=== PATIENT | female | born 1955 | race African-American/Black ===

== ENCOUNTER 2019-05-29 16:08 | Inpatient (IN) | payer OTHER ==
[~2019-05-29] VITALS: Ht 157.5 cm; Wt 125.6 kg
[2019-05-29 16:10] VITALS: BP_SYST 112
--- NOTE | 2019-05-29 16:10 | NUR ---
Patient to ER bed 2 to gown for evaluation. Side rails up. Report given to Dawna ELLIS.
--- NOTE | 2019-05-29 16:12 | NUR ---
Patient arrived in the ED c/o shortness of breath, chest pain and coughing that started a month ago. Denied any loss of consciousness. Denied any fevers, chills, nausea or vomiting. Patient is alert and oriented x4, speaking in full sentences, and ambulating with assistance. VSS, pain level 4/10. Informed of the approximate wait time. Instructed to notify ED staff for any changes in condition or worsening of symptoms while waiting to be seen by the provider. Patient verbalized understanding.
--- NOTE | 2019-05-29 16:13 | NUR ---
ER Dr. Tony at bedside examining patient.
[2019-05-29] MEDS ORDERED: methylPREDNISolone SOD SUCC/PF 62.5 MG/ML VIAL IVP ONE (16:15)
[2019-05-29] MEDS ORDERED: IPRATROPIUM BROM 0.5 MG/2.5 ML VIAL.NEB (ATROVENT) INH ONE (16:15)
[2019-05-29] MEDS ORDERED: ALBUTEROL SULFATE 0.083% 2.5 MG/3 ML VIAL.NEB INH ONE (16:15)
[2019-05-29] MEDS ORDERED: ASPIRIN 81 MG TAB.CHEW PO ONE (16:15)
--- NOTE | 2019-05-29 16:29 | NUR ---
X-ray tech at bedside as ordered by Dr. Tony. Patient tolerated the procedure well.
--- NOTE | 2019-05-29 16:34 | NUR ---
ECG done at bedside.
--- NOTE | 2019-05-29 16:35 | NUR ---
RT at bedside administering inhalation treatment as ordered by Dr. Tony. Patient tolerated the medications well.
[2019-05-29 16:41] LABS: BASOPHILS % (AUTO) 0.6 % (0.0-2.0); EOSINOPHILS # (AUTO) 0.1 K/uL (0.0-0.4); HEMATOCRIT 30.2 % (36-48); HEMOGLOBIN 9.6 g/dL (12.0-16.0); LYMPHOCYTES # (AUTO) 2.6 K/uL (1.0-5.5); LYMPHOCYTES % (AUTO) 39.6 % (20.5-51.5); MEAN CORPUSCULAR HEMOGLOBIN 28 pg (27-31); MEAN CORPUSCULAR HGB CONC 32 % (32-36); MEAN CORPUSCULAR VOLUME 88 fL (79.0-98.0); MONOCYTES # (AUTO) 0.6 K/uL (0.0-1.0); MONOCYTES % (AUTO) 9.6 % (1.7-9.3); NEUTROPHILS # (AUTO) 3.2 K/uL (1.8-7.7); NEUTROPHILS % (AUTO) 49.2 % (40.0-70.0); PLATELET COUNT (AUTO) 271 K/uL (130-430); RED BLOOD CELL COUNT(AUTO) 3.44 MIL/uL (4.2-6.2); RED CELL DISTRIBUTION WIDTH 13.7 % (9.0-15.0); WHITE BLOOD COUNT (AUTO) 6.4 K/uL (4.8-10.8)
[2019-05-29 16:54] LABS: CALCIUM 8.2 mg/dL (8.4-11.0); CREATININE 1.07 mg/dL (0.55-1.30); POTASSIUM 3.6 mmol/L (3.5-5.1)
[2019-05-29 16:58] LABS: ALBUMIN 3.5 g/dL (3.4-4.8); TOTAL BILIRUBIN 0.3 mg/dL (0.0-1.0)
[2019-05-29] MEDS ORDERED: DIPHENHYDRAMINE INJ 50 MG/ML VIAL IVP ONE (17:00)
[2019-05-29] MEDS ORDERED: AZAT50TA18 PO (17:10)
[2019-05-29] MEDS ORDERED: ALPR0.25 PO (17:15)
[2019-05-29] MEDS ORDERED: GABA-531 PO (17:15)
[2019-05-29] MEDS ORDERED: DULO20CA PO (17:15)
[2019-05-29] MEDS ORDERED: LISI-600 PO (17:15)
[2019-05-29] MEDS ORDERED: DIPH50CA38 PO (17:16)
[2019-05-29] MEDS ORDERED: LINA145C PO (17:18)
[2019-05-29] MEDS ORDERED: ISOS30TA6 PO ×2 (17:18→17:38)
[2019-05-29] MEDS ORDERED: TYC3 PO (17:25)
[2019-05-29] MEDS ORDERED: NITR1PAT76 TD (17:25)
[2019-05-29] MEDS ORDERED: ROFL500T PO (17:25)
[2019-05-29] MEDS ORDERED: POTA20TA83 PO (17:25)
[2019-05-29] MEDS ORDERED: OXYC36CA PO (17:25)
[2019-05-29] MEDS ORDERED: MORP15TA PO (17:25)
[2019-05-29] MEDS ORDERED: MONT10TA25 PO (17:25)
[2019-05-29] MEDS ORDERED: AZIT250T PO (17:25)
[2019-05-29] MEDS ORDERED: CYCL-10 PO (17:25)
[2019-05-29] MEDS ORDERED: FLUT1BLS3 INH (17:25)
[2019-05-29] MEDS ORDERED: ALBU2.5V7 INH (17:25)
[2019-05-29] MEDS ORDERED: COLE3.753 PO (17:25)
[2019-05-29] MEDS ORDERED: OXYC10TA48 PO (17:25)
[2019-05-29] MEDS ORDERED: FLUO120C4 TP (17:35)
[2019-05-29] MEDS ORDERED: FER300L PO (17:35)
[2019-05-29] MEDS ORDERED: FER300L (17:35)
[2019-05-29] MEDS ORDERED: DICL100G19 TP (17:35)
[2019-05-29] MEDS ORDERED: FLO44 INH (17:35)
[2019-05-29] MEDS ORDERED: FLUC200T PO (17:35)
[2019-05-29] MEDS ORDERED: POTA8TAB4 PO (17:38)
[2019-05-29] MEDS ORDERED: FURO-149 PO (17:38)
[2019-05-29] MEDS ORDERED: ATRMDI INH (17:38)
[2019-05-29] MEDS ORDERED: ASM110 INH (17:38)
[2019-05-29] MEDS ORDERED: KETO60CR2 TP (17:38)
[2019-05-29] MEDS ORDERED: ROPI3TAB PO (17:42)
[2019-05-29] MEDS ORDERED: NITSL SL (17:42)
[2019-05-29] MEDS ORDERED: INSU100I4 SUBQ (17:42)
[2019-05-29] MEDS ORDERED: RESEYE OP (17:42)
[2019-05-29] MEDS ORDERED: TRIA15CR3 TP (17:43)
[2019-05-29] MEDS ORDERED: ENOXAPARIN SODIUM 100 MG/ML SYRINGE SUBCUT ONE (18:15)
[2019-05-29 18:29] LABS: INR 0.9 (0.8-1.2); PROTHROMBIN TIME 9.4 SECS (9.5-12.5)
--- NOTE | 2019-05-29 18:50 | NUR ---
Administered Lovenox subcutaneous as ordered by Dr. Tony. Patient tolerated the medication well.
--- NOTE | 2019-05-29 18:56 | NUR ---
Administered Morphine sulfate as ordered by Dr. Tony. Patient tolerated the medication well.
[2019-05-29] MEDS ORDERED: MORPHINE 2 MG/ML INJ. SYRINGE IVP ONE (19:00)
--- NOTE | 2019-05-29 19:19 | NUR ---
Report given and care transferred to RHONDA Martinez.
--- NOTE | 2019-05-29 19:25 | NUR ---
Assumed care of patient. Patient AOx4, GCS 15, states she presented with SOB, difficulty breathing, and chest pain x2 weeks. Patient states she has had a persistent productive cough. Patient states she has noted a blood-tinged color to the phlegm. Patient reports hx of COPD and uses 3L 02 via NC continuously. Patient speaking in full sentences. No acute respiratory distress noted at this time. 02 sat at 100%.
--- NOTE | 2019-05-29 19:26 | NUR ---
End of life care decisions discussed with patient by Dr. Tony. Opportunity for questions and concerns addressed. Patient's code status is DNR, paperwork completed and placed in chart.
[2019-05-29] MEDS ORDERED: IPRATROPIUM BROM 0.5 MG/2.5 ML VIAL.NEB (ATROVENT) INH PRN (21:45)
[2019-05-29] MEDS ORDERED: ALBUTEROL SULFATE 0.083% 2.5 MG/3 ML VIAL.NEB INH PRN (21:45)
--- NOTE | 2019-05-29 21:55 | NUR ---
Patient will be admitted to care of DR. REYES. Admitted to TELEMETRY unit. Will go to room 117A. Complete and up to date summary report printed. SBAR report to be given at bedside with opportunity for questions.
--- NOTE | 2019-05-29 22:19 | NUR ---
ADMISSION NOTE Received patient from ER via hunter, received report from WELFARE DIRECTOR. Patient admitted with diagnosis of SOB. Patient oriented to hospital routine, call light, toileting and safety-patient verbalized understanding.
[2019-05-29 22:21] VITALS: BP_SYST 139
--- NOTE | 2019-05-29 23:10 | NUR ---
Ky De Los Santos s/w Maria De Jesus
--- NOTE | 2019-05-29 23:40 | NUR ---
Second Call for Dr. De Los Santos s/w Maria De Jesus
[2019-05-30] MEDS: IPRATROPIUM BROM 0.5 MG/2.5 ML VIAL.NEB (ATROVENT) INH SCH ×4 (00:27→19:50)
[2019-05-30] MEDS: ALBUTEROL SULFATE 0.083% 2.5 MG/3 ML VIAL.NEB INH SCH ×4 (00:28→19:50)
[2019-05-30 00:36] VITALS: BP_SYST 139
--- NOTE | 2019-05-30 00:38 | NUR ---
SPOKE TO DR. REYES REGARDING PT'S REPORT OF SEVERE PAIN AND NAUSEA. NEW ORDERS RECEIVED. ALSO ASKED MD IF HE WOULD LIKE TO HAVE THE PATIENT ON A DIET, MD STATED THE PATIENT WILL BE NPO AT THIS TIME. WILL CARRY OUT.
[2019-05-30 00:45] VITALS: BP_SYST 140
[2019-05-30] MEDS: HYDROmorphone 1 MG INJ. 1 MG/ML AMPUL IVP PRN ×6 (00:50→23:14)
[2019-05-30] MEDS: ONDANSETRON HCL 4 MG/2 ML VIAL IVP PRN ×4 (00:50→21:48)
--- NOTE | 2019-05-30 00:50 | NUR ---
PAIN/ZOFRAN PT GIVEN DILAUDID 1 MG IVP ORDERED PRN FOR SEVERE PAIN. PT ALSO GIVEN ZOFRAN 4 MG IVP FOR NAUSEA. MEDICATION ACTIONS AND POTENTIAL SIDE EFFECTS, PT VERBALIZED UNDERSTANDING. SAFETY MAINTAINED. WILL MONITOR.
--- NOTE | 2019-05-30 02:15 | NUR ---
RN ROUNDS: PT RESTING IN BED, BREATHING IS UNLABORED TO O2 VIA NC AT 3L, PRODUCTIVE COUGH NOTED INTERMITTENTLY. PT REPORTS TOLERABLE LEVEL OF PAIN AT THIS TIME. PT DENIES FURTHER NEEDS AT THIS TIME. NO S/S OF DISTRESS. SAFETY MAINTAINED, CALL LIGHT IS WITH PT. WILL MONITOR.
[2019-05-30] MEDS: DIPHENHYDRAMINE INJ 50 MG/ML VIAL IVP PRN ×3 (04:54→21:59)
[2019-05-30] MEDS: methylPREDNISolone SOD SUCC/PF 62.5 MG/ML VIAL IVP SCH ×3 (05:01→21:59)
--- NOTE | 2019-05-30 05:01 | NUR ---
MEDICATIONS PT GIVEN DILAUDID 1 MG IVP ORDERED PRN FOR SEVERE PAIN. PT ALSO GIVEN ZOFRAN 4 MG IVP FOR NAUSEA. PT GIVEN BENADRYL PER REQUEST. SCHEDULED SOLU-MEDROL ADMINISTERED ORDERED. MEDICATION ACTIONS AND POTENTIAL SIDE EFFECTS, PT VERBALIZED UNDERSTANDING. SAFETY MAINTAINED. WILL MONITOR.
--- NOTE | 2019-05-30 06:42 | NUR ---
CLOSING NOTE PT RESTING IN BED, NO S/S OF ACUTE DISTRESS, PT HAS BEEN MEDICATED FOR PAIN THROUGHOUT SHIFT, BREATHING IS UNLABORED TO O2 VIA NC AT 3L. PT HAS RECEIVED BREATHING TREATMENTS THROUGHOUT SHIFT. SAFETY PRECAUTIONS MAINTAINED. WILL CONTINUE TO MONITOR UNTIL PT CARE IS ENDORSED TO DAY SHIFT RN.
--- NOTE | 2019-05-30 07:15 | NUR ---
Opening Note Received bedside report from endorsing RN for continuation of care. Received patient awake and resting in bed, denies any pain or SOB at this time. No signs or symptoms of acute distress noted. Bed locked in lowest position and call light within reach. Safety precautions in place.
[2019-05-30 08:00] VITALS: BP_SYST 114
[2019-05-30] MEDS: DULoxetine HCL 20 MG CAPSULE.DR PO SCH (09:00)
[2019-05-30] MEDS ORDERED: ISOSORBIDE MONONITRATE 30 MG TAB.ER.24H PO SCH (09:00)
[2019-05-30] MEDS: ISOSORBIDE MONONITRATE 30 MG TAB.ER.24H PO SCH (09:12)
[2019-05-30] MEDS: LISINOPRIL 20 MG TABLET PO SCH (09:13)
[2019-05-30] MEDS: FUROSEMIDE 40 MG TABLET PO SCH (09:13)
[2019-05-30] MEDS ORDERED: BUDESONIDE 0.5 MG/2 ML AMPUL.NEB INH SCH (10:00)
--- NOTE | 2019-05-30 10:15 | NUR ---
Dr. De Los Santos at bedside examining patient. New orders received.
--- NOTE | 2019-05-30 10:16 | NUR ---
CONSULT Dr. Brand in unit. Made aware of new consult.
[2019-05-30] MEDS ORDERED: COMMUNICATION ORDER XX ONE (11:30)
--- NOTE | 2019-05-30 11:35 | NUR ---
Dr. Brand at bedside examining patient. New orders received.
[2019-05-30 12:00] VITALS: BP_SYST 110
--- NOTE | 2019-05-30 12:39 | NUR ---
PAGED PAGED TERE LOMAX AT [phone] SPOKE WITH CURT.
[2019-05-30] MEDS ORDERED: HYDROcodone/ACETAMIN 5-325 MG TAB (NORCO/ VICODIN) PO PRN (13:00)
[2019-05-30] MEDS ORDERED: ALBUTEROL SULFATE 0.083% 2.5 MG/3 ML VIAL.NEB INH SCH (13:00)
[2019-05-30] MEDS: MEROPENEM 1 GM IVPB PREMIX 50 ML IV SCH ×2 (13:09→21:48)
--- NOTE | 2019-05-30 13:20 | NUR ---
Patient to radiology via wheelchair, accompanied by senior technical manager.
--- NOTE | 2019-05-30 13:50 | NUR ---
Patient back from radiology via wheelchair, accompanied by lead quality control technician. Patient placed on continuous campus monitor.
--- NOTE | 2019-05-30 14:15 | NUR ---
Patient awake and resting in bed, watching TV, denies any pain or SOB at this time. No signs or symptoms of acute distress noted.
[2019-05-30 16:00] VITALS: BP_SYST 112
--- NOTE | 2019-05-30 16:30 | NUR ---
Patient resting in bed, no signs or symptoms of acute distress noted. Fall and safety precautions in place.
[2019-05-30] MEDS: MONTELUKAST 10 MG TABLET PO SCH (17:40)
--- NOTE | 2019-05-30 18:32 | NUR ---
Patient sitting up in bed eating dinner, denies any pain or SOB. No signs or symptoms of acute distress noted. Bed locked in lowest position and call light within reach. Safety precautions in place.
--- NOTE | 2019-05-30 19:10 | NUR ---
Endorsement Endorsed bedside report to oncoming RN using SBAR approach for continuation of care.
--- NOTE | 2019-05-30 19:10 | NUR ---
Pt was received sitting on the edge of her bed fully awake and alert. Pt has multiple complaints and requested to leave AMA. Pt stated her IV site in RFA is infiltrated and nothing is being done about it. Pt was informed a new IV line will be restarted after RN receives report from other day shift nurses since this is change of shift. Pt was given AMA form per her request. Oxygen is on at 3L/min via NC. Fall and safety precautions are in place. Addendum: 05/31/19 at 0151 by Kenia Coleman RN Late Entry due to patient care
[2019-05-30 20:00] VITALS: BP_SYST 137
--- NOTE | 2019-05-30 20:15 | NUR ---
Pt requested IV restart in her right forearm only. RN utilized Vein Finder and was unable to find a vein for IV restart in her RFA, but found some in pt's right hand. Pt refused IV restart in her right hand. She stated IV lines in her right hand do not last long before they become infiltrated. Pt also requested not to restart IV line in her left arm due to history of DVT. Pt was informed RN will ask another RN to attempt restarting IV line in her RFA.
--- NOTE | 2019-05-30 21:30 | NUR ---
New IV line was restarted in pt's right wrist with Angiocath 24G by charge nurse Hung. Saline lock in RFA was removed with the Angiocath intact and pressure dressing was applied to the site.
--- NOTE | 2019-05-30 21:48 | NUR ---
Zofran 4mg was given IV for c/o nausea. Fall and safety precautions are in place.
--- NOTE | 2019-05-30 21:54 | NUR ---
Pt requested to have her blood sugar checked. Pt stated she is on steroids and her blood sugar must be very high. Accucheck done and it was 131.
--- NOTE | 2019-05-30 21:59 | NUR ---
Benadryl 50mg was given IV per pt's request for itching prior to giving her scheduled IV Solu Medrol. Fall and safety precautions are in place.
--- NOTE | 2019-05-30 23:14 | NUR ---
Dilaudid 1mg was given IV for c/o generalized body aches. Pt is requesting all her home medications resumed by MD loss prevention supervisor even though some were held by attending MD. Pt was informed Dr. De Los Santos will be in tomorrow morning and he can review her home medications. Fall and safety precautions are in place.
--- NOTE | 2019-05-31 00:15 | NUR ---
Pt was given 1/2 turkey sandwich, 2 jellos and 2 juices per her request. Pt consumed 100%.
[2019-05-31] MEDS: ALBUTEROL SULFATE 0.083% 2.5 MG/3 ML VIAL.NEB INH SCH ×4 (01:25→19:59)
[2019-05-31] MEDS: IPRATROPIUM BROM 0.5 MG/2.5 ML VIAL.NEB (ATROVENT) INH SCH ×4 (01:25→19:59)
--- NOTE | 2019-05-31 01:30 | NUR ---
Pt was given 2 1/2 turkey sandwiches, 4 packets of Chago Crackers (total 8 crackers) and 1 cup vanilla pudding per her request. Pt consumed 100%.
[2019-05-31 02:18] VITALS: BP_SYST 144
[2019-05-31] MEDS: HYDROmorphone 1 MG INJ. 1 MG/ML AMPUL IVP PRN ×4 (03:20→22:05)
--- NOTE | 2019-05-31 03:20 | NUR ---
Dilaudid 1mg was given IV per pt's request for c/o generalized body aches. Fall and safety precautions are in place.
[2019-05-31] MEDS: MEROPENEM 1 GM IVPB PREMIX 50 ML IV SCH ×3 (05:13→21:57)
[2019-05-31] MEDS: DIPHENHYDRAMINE INJ 50 MG/ML VIAL IVP PRN ×3 (05:25→22:03)
--- NOTE | 2019-05-31 05:25 | NUR ---
Benadryl 50mg was given IV per pt's request for itching prior to giving her scheduled IV Solu Medrol. Fall and safety precautions are in place.
[2019-05-31] MEDS: methylPREDNISolone SOD SUCC/PF 62.5 MG/ML VIAL IVP SCH ×3 (05:28→21:56)
--- NOTE | 2019-05-31 06:30 | NUR ---
Pt is awake and resting quietly in bed. All pt's needs were attended to. Saline lock in right wrist is without an signs of infiltration. Fall and safety precautions are in place. Will endorse to day shift nurse.
--- NOTE | 2019-05-31 07:30 | NUR ---
INITIAL NOTE PT COUGHING, ASSISTED PT WITH SUCTION. PT ON 3L NASAL CANNULA SATURATING AT 99%. PT COMPLAINING OF GENERALIZED PAIN. EDUCATED PT ON USES AND SIDE EFFECTS OF DILAUDID. PT VERBALIZED UNDERSTANDING. PRN DILAUDID ADMINISTERED. CALL LIGHT WITHIN REACH, BED IN LOW AND LOCKED POSITION. EDUCATED PT ON SAFETY AND USE OF BED ALARM, PT VERBALIZED UNDERSTANDING, PT REFUSING BED ALARM AT THIS TIME.
[2019-05-31] MEDS: ONDANSETRON HCL 4 MG/2 ML VIAL IVP PRN ×2 (07:32→11:41)
[2019-05-31 08:00] VITALS: BP_SYST 134
[2019-05-31] MEDS: DULoxetine HCL 20 MG CAPSULE.DR PO SCH ×2 (09:00→09:04)
[2019-05-31] MEDS: ISOSORBIDE MONONITRATE 30 MG TAB.ER.24H PO SCH (09:04)
[2019-05-31] MEDS: LISINOPRIL 20 MG TABLET PO SCH (09:04)
[2019-05-31] MEDS: FUROSEMIDE 40 MG TABLET PO SCH (09:05)
--- NOTE | 2019-05-31 09:30 | NUR ---
DR. REYES/RN ROUNDS MD AT BEDSIDE EXAMINING PT. INFORMED MD THAT PT IS REQUESTING FOR SOME OF HER HOME PAIN MEDS TO BE CONTINUED, MEDICATIONS ARE IN THE MED REC. MD TO LOOK AT MED REC. PT REMAINS ON 3L NC, NO COUGHING AT THIS TIME.
--- NOTE | 2019-05-31 10:01 | NUR ---
Nutrition Update Carmine Scale 18 noted. Pt admitted for SOB. Diet: 2 gm Na BMI: 50.3 kg/m2 RD to follow per nutrition care standards.
--- NOTE | 2019-05-31 11:30 | NUR ---
RN ROUNDS PT ASSISTED TO BSC. PT VOIDED, CLEAR AND YELLOW. NURSING STUDENTS ASSISTED PT WITH BED BATH AND CHANGED LINENS. PT TOLERATED WELL.
[2019-05-31 12:00] VITALS: BP_SYST 144
--- NOTE | 2019-05-31 13:30 | NUR ---
RN ROUNDS PT AWAKE, SPEAKING ON PHONE AT BEDSIDE. NO CHANGE IN ASSESSMENT. WILL CONTINUE TO MONITOR.
--- NOTE | 2019-05-31 15:21 | NUR ---
RN ROUNDS PT AWAKE, RESTING IN BED. PT REMAINS ON 3L NC TOLERATING WELL. WILL CONTINUE TO MONITOR.
--- NOTE | 2019-05-31 15:38 | NUR ---
Dietitian Recommendations * Recommend continuing 2 gm Na diet * Encourage increase PO intakes * RD to provide heart-healthy MNT LP, RD Please refer to Nutrition Assessment for details. Addendum: 05/31/19 at [address] Amended: Links added.
[2019-05-31 16:00] VITALS: BP_SYST 142
--- NOTE | 2019-05-31 16:00 | NUR ---
IV INFILTRATED/REFUSED IV ACCESS PT IV INFILTRATED. INFORMED PT THAT WE WILL NEED A NEW IV ACCESS. EDUCATED PT THAT IN ORDER TO START AN IV WE MUST FLUSH IV LINE. PT VERBALIZED UNDERSTANDING. CHARGE NURSEEARNEST AT BEDSIDE TO START NEW IV. CHARGE NURSE RE-EDUCATED THAT ALL NARCOTICS ARE TO BE DILUTED BEFORE BEING ADMINISTERED. PT WAS VERY UNCOOPERATIVE AND WOULD NOT ALLOW A NEW IV IF HER PRN DILAUDID WAS DILUTED. CHARGE NURSE AND I REITERATED THAT IT IS STATE POLICY. PT REFUSING IV ACCESS AT THIS TIME.
--- NOTE | 2019-05-31 16:30 | NUR ---
DR. GRAHAM/RN ROUNDS MD AT BEDSIDE EXAMINING PT. INFORMED MD THAT PT IV INFILTRATED BUT PT IS REFUSING ACCESS TO PAIN MEDS BEING DILUTED EVEN WHEN EDUCATED THAT IT IS STATE POLICY. INFORMED MD THAT PT DOES HAVE PO PAIN MEDICATIONS IN HER MED REC. MD TO CONTINUE MEDICATIONS.
[2019-05-31] MEDS ORDERED: GABAPENTIN 300 MG CAPSULE PO ONE (16:45)
[2019-05-31] MEDS ORDERED: MORPHINE SULFATE 30 MG Immediate Release TABLET PO ONE (16:45)
--- NOTE | 2019-05-31 16:55 | NUR ---
DR. REYES SPOKE WITH MD VIA PHONE, INFORMED MD THAT PT IS REFUSING IV ACCESS SHE STATES THAT "DILUTING MY DILAUDID IS CAUSING ME PAIN TO MY IV SITE, MY HEAD, AND IT HURTS" INFORMED MD THAT PT WAS EDUCATED THAT IT IS [place] POLICY TO DILUTE ALL NARCOTICS. MD AWARE THAT PT HAS NO IV ACCESS AND DR GRAHAM CONTINUED PO PAIN MEDICATIONS FROM MED REC. MD AGREEABLE AND WILL CONTINUE WITH CURRENT POC.
--- NOTE | 2019-05-31 17:15 | NUR ---
RN ROUNDS INFORMED PT THAT DR. GRAHAM WAS ABLE TO CONTINUE HER PO PAIN MEDICATIONS. PT WAS STILL UNHAPPY. ASKED PT IF SHE WOULD LIKE TO TAKE THE MEDICATION. PT AGREED TO TAKE PO PAIN MEDICATION. PT INQUIRED ABOUT IV ANTIBIOTICS. INFORMED PT THAT WE WOULD NEED IV ACCESS. PT SAID SHE WOULD AGREE TO IV ACCESS IF DILAUDID WOULD BE DILUTED. RE-EDUCATED WITH THAT ALL RN'S ARE REQUIRED BY STATE LAW TO DILUTE ALL NARCOTICS AND WILL DO SO. PT BECAME UPSET. ASKED PT IF SHE WOULD ALLOW US TO ATTEMPT IV ACCESS. PT REFUSED.
[2019-05-31] MEDS: MONTELUKAST 10 MG TABLET PO SCH (17:20)
--- NOTE | 2019-05-31 18:48 | NUR ---
CLOSING NOTE PT AWAKE, ON 3L NC, TOLERATING WELL. PT SPEAKING WITH NEIGHBOR. NO IV ACCESS, PT REFUSED, MD IS AWARE. EDUCATED PT ON SAFETY AND USE OF BED ALARM, PT VERBALIZED UNDERSTANDING, PT REFUSING BED ALARM AT THIS TIME. CALL LIGHT WITHIN REACH, BED IN LOW AND LOCKED POSITION. ALL NEEDS MET THROUGHOUT SHIFT. WILL CONTINUE TO MONITOR UNTIL PT CARE IS ENDORSED TO FUR POINTER RN.
--- NOTE | 2019-05-31 19:40 | NUR ---
Opening notes Pt AAOx4, VSS, afebrile. No s/s distress or sob noted. Pt talking on the phone. Call light within reach. Safety maintained. Bed low, locked, siderails up x2, pt refused bed alarm, education provided. To monitor.
[2019-05-31 20:30] VITALS: BP_SYST 139
[2019-05-31] MEDS: CYCLOBENZAPRINE HCL 10 MG TABLET (FLEXERIL) PO SCH (21:18)
--- NOTE | 2019-05-31 22:00 | NUR ---
IV restart L. wrist IV not patent. DC'd IV catheter tip intact, no bleeding noted. IV restarted L. FA 22G via aseptic technique, good blood return and flushes well with NS. Pt tolerated well. To monitor.
--- NOTE | 2019-05-31 22:05 | NUR ---
Pain Pt AAOx4, c/o severe, chronic generalized pain. Medicated with Dilaudid 1mg slow IVP as needed R. FA 22G clear and patent. Encouraged pt to call for assistance. Pt verbalized understanding. Call light within reach. To monitor.
[2019-06-01] VITALS (7 sets, daily range): BP systolic 125–160
[2019-06-01] MEDS: ALBUTEROL SULFATE 0.083% 2.5 MG/3 ML VIAL.NEB INH SCH ×4 (00:59→20:01)
[2019-06-01] MEDS: IPRATROPIUM BROM 0.5 MG/2.5 ML VIAL.NEB (ATROVENT) INH SCH ×4 (00:59→20:01)
--- NOTE | 2019-06-01 01:43 | NUR ---
Pt c/o numbness/pain right hand Pt c/o numbness/pain/swelling right hand. R. hand slightly swollen than L hand and tender to touch. Radial pulse palpable and pt able to move fingers/hand. Pt requesting if MRI of hand can be done. Will continue to monitor.
[2019-06-01] MEDS: HYDROmorphone 1 MG INJ. 1 MG/ML AMPUL IVP PRN ×5 (02:55→23:35)
--- NOTE | 2019-06-01 03:05 | NUR ---
Pain Pt c/o severe generalized pain. Dilaudid 1mg slow IVP administered R. FA 22G clear and patent. Call light within reach. Bed low, locked, siderails upx2. Pt refused bed alarm. To monitor.
[2019-06-01] MEDS: MEROPENEM 1 GM IVPB PREMIX 50 ML IV SCH ×3 (06:00→20:00)
[2019-06-01] MEDS: methylPREDNISolone SOD SUCC/PF 62.5 MG/ML VIAL IVP SCH ×3 (06:00→22:26)
[2019-06-01] MEDS: DIPHENHYDRAMINE INJ 50 MG/ML VIAL IVP PRN ×3 (06:02→20:27)
--- NOTE | 2019-06-01 06:55 | NUR ---
Closing notes Pt awake, alert, no s/s distress or sob noted. Pt c/o generalized pain, Dilaudid given 1mg slow IVP R. FA 22G clear and patent. Pt c/o numbness, tenderness, swelling on right hand, pt able to move fingers. Endorsed to AM nurse. Call light within easy reach. Pt refused bed alarm on.
--- NOTE | 2019-06-01 07:15 | NUR ---
OPENING NOTES PT AWAKE, ALERT, AND ORIENTED SITTING UP AT BEDSIDE. NO ACUTE DISTRESS NOTED. NONLABORED BREATHING NOTED, RECEIVING OXYGEN AT 3LPM VIA NASAL CANNULA, TOLERATING WELL. IV LINE INTACT AND PATENT, NO SIGNS OF INFILTRATION NOTED. PT DENIES PAIN AT THIS TIME. BED LOCKED AND IN LOWEST POSITION. ALL NEEDS MET. CALL LIGHT IN REACH. FALL AND ASPIRATION PRECAUTIONS IN PLACE. CONTINUE TO MONITOR.
[2019-06-01] MEDS: LISINOPRIL 20 MG TABLET PO SCH (08:36)
[2019-06-01] MEDS: GABAPENTIN 300 MG CAPSULE PO SCH (08:36)
[2019-06-01] MEDS: FUROSEMIDE 40 MG TABLET PO SCH (08:37)
[2019-06-01] MEDS: ISOSORBIDE MONONITRATE 30 MG TAB.ER.24H PO SCH (08:37)
--- NOTE | 2019-06-01 08:37 | NUR ---
ROUTINE MEDS ROUTINE MEDS ADMINISTERED ORDERED PER MD, EDUCATION GIVEN, TOLERATED WELL. NO ACUTE DISTRESS NOTED. ALL NEEDS MET. CALL LIGHT IN REACH. CONTINUE TO MONITOR.
[2019-06-01] MEDS: DULoxetine HCL 20 MG CAPSULE.DR PO SCH ×2 (08:38→08:40)
--- NOTE | 2019-06-01 08:48 | NUR ---
SEEN BY DR. REYES AT BEDSIDE.
[2019-06-01] MEDS ORDERED: MORPHINE SULFATE 30 MG Immediate Release TABLET PO SCH (09:00)
--- NOTE | 2019-06-01 10:00 | NUR ---
ROUNDS PT AWAKE, ALERT, AND ORIENTED WATCHING TELEVISION. NO ACUTE DISTRESS NOTED. ALL NEEDS MET. CALL LIGHT IN REACH. CONTINUE TO MONITOR.
--- NOTE | 2019-06-01 11:31 | NUR ---
ROUTINE MEDS ROUTINE MEDS ADMINISTERED ORDERED PER MD, EDUCATION GIVEN, TOLERATED WELL. NO ACUTE DISTRESS NOTED. ALL NEEDS MET. CALL LIGHT IN REACH. CONTINUE TO MONITOR.
--- NOTE | 2019-06-01 12:31 | NUR ---
Physical Therapy order has been received. The chart has been reviewed. Received clearance from the RN to evaluate the patient. Patient is unsure that she wants to attempt the evaluation at this time because of her experiencing painful wrists, R > L, and generalized pain due to her medical history. She is frustrated. RN will speak to the patient regarding her care/medical status. Plan: Will attempt Physical Therapy evaluation later.
--- NOTE | 2019-06-01 12:45 | NUR ---
SPOKE TO PT REGARDING IV. IV LINE INTACT AND PATENT, NO SIGNS OF INFILTRATION NOTED. NO REDNESS. WILL CONTINUE TO MONITOR.
--- NOTE | 2019-06-01 14:12 | NUR ---
Nutrition Education/Patient Experience Referral RD provided nutrition education on the topics of heart-healthy MNT. Please refer to interdisciplinary teaching record for details. Pt voiced concerns w/ overall poor care during her hospital stay. RD notified patient experience manager integration at [phone].
--- NOTE | 2019-06-01 14:31 | NUR ---
Physical Therapy evaluation was attempted a 2nd time, however, the patient is unable to participate due to her having complaint of right forearm pain. RN was informed and will inspect the patient's arm. Plan: Attempt tomorrow.
--- NOTE | 2019-06-01 14:33 | NUR ---
ASSESSED PT'S IV LINE. IV LINE INFILTRATED, MINOR SWELLING. NO REDNESS NOTED. WILL START NEW IV LINE. ACCUCHECK DONE PER PT'S REQUEST. RESULT 132MG/DL. EDUCATION GIVEN, TOLERATED WELL. ALL NEEDS MET. CALL LIGHT IN REACH CONTINUE TO MONITOR.
--- NOTE | 2019-06-01 14:40 | NUR ---
ASSESSED PT'S IV LINE. IV LINE INFILTRATED, MINOR SWELLING. NO REDNESS NOTED. WILL START NEW IV LINE. Addendum: 06/01/19 at 1606 by Sheri Gutierrez RN WRONG TIME, DONE AT 1433
--- NOTE | 2019-06-01 15:45 | NUR ---
IV RE-INSERTION: Successful after 2 attempts. TOLERATED WELL. NO ACUTE DISTRESS NOTED. Will observe for any signs of infiltration. ALL NEEDS MET, CALL LIGHT IN REACH. CONTINUE TO MONITOR.
[2019-06-01] MEDS: MONTELUKAST 10 MG TABLET PO SCH (18:25)
--- NOTE | 2019-06-01 18:37 | NUR ---
ROUTINE MEDS ROUTINE MEDS ADMINISTERED ORDERED PER MD, EDUCATION GIVEN, TOLERATED WELL. NO ACUTE DISTRESS NOTED. ALL NEEDS MET. CALL LIGHT IN REACH. CONTINUE TO MONITOR.
--- NOTE | 2019-06-01 18:45 | NUR ---
CLOSING NOTES PT AWAKE, ALERT, AND ORIENTED. NONLABORED BREATHING NOTED, RECEIVING OXYGEN VIA NASAL CANNULA ORDERED PER MD, TOLERATING WELL. IV LINE INTACT AND PATENT, NO SIGNS OF INFILTRATION NOTED. NO ACUTE DISTRESS NOTED. ALL NEEDS MET. CALL LIGHT IN REACH. PT DENIES PAIN AT THIS TIME. FALL AND ASPIRATION PRECAUTIONS IN PLACE. BED LOCKED AND IN LOWEST POSITION. WILL ENDORSE TO NOC NURSE.
--- NOTE | 2019-06-01 20:15 | NUR ---
Opening notes Pt AAOx4, getting HHN txmt at this time. VSS, O2 sat 100%. Pt coughing, provided self suctioning. IV R. FA 22G clear and patent. Safety maintained. Call light/items within reach. To monitor.
[2019-06-01] MEDS: CYCLOBENZAPRINE HCL 10 MG TABLET (FLEXERIL) PO SCH (20:27)
[2019-06-01] MEDS: MORPHINE SULFATE 30 MG Immediate Release TABLET PO SCH (22:25)
[2019-06-01] MEDS: ONDANSETRON HCL 4 MG/2 ML VIAL IVP PRN (23:34)
--- NOTE | 2019-06-01 23:35 | NUR ---
Pain Pt c/o severe generalized pain, medicated with Dilaudid 1mg IVP as needed R. FA 22G no s/s infiltration. Call light within reach. Safety maintained. Bed low, locked, siderails up x2. To monitor.
[2019-06-02] MEDS: ALBUTEROL SULFATE 0.083% 2.5 MG/3 ML VIAL.NEB INH SCH ×4 (00:30→18:42)
[2019-06-02] MEDS: IPRATROPIUM BROM 0.5 MG/2.5 ML VIAL.NEB (ATROVENT) INH SCH ×4 (00:30→18:42)
[2019-06-02 00:31] VITALS: BP_SYST 156
[2019-06-02] MEDS ORDERED: ASPI-1155 PO (01:53)
[2019-06-02] MEDS ORDERED: POTA20TA83 PO (01:55)
[2019-06-02] MEDS ORDERED: LIDOINT TP (03:34)
[2019-06-02] MEDS: HYDROmorphone 1 MG INJ. 1 MG/ML AMPUL IVP PRN ×4 (04:05→22:39)
[2019-06-02] MEDS: DIPHENHYDRAMINE INJ 50 MG/ML VIAL IVP PRN ×2 (04:06→20:48)
[2019-06-02] MEDS: MEROPENEM 1 GM IVPB PREMIX 50 ML IV SCH ×3 (04:06→20:48)
--- NOTE | 2019-06-02 04:35 | NUR ---
IV meds Pt R. IV starting to get infiltrated. Pt refuse IV start at this time. Pt requests to have IV meds changed to PO or IM. Will endorse to AM nurse. CRN made aware. Safety maintained. Call light within reach. To monitor.
[2019-06-02] MEDS ORDERED: FLUT16SP16 NS (04:45)
--- NOTE | 2019-06-02 05:00 | NUR ---
Rounds Pt asleep, no s/s distress noted. Oxygen on via NC. Safety maintained. Bed low, locked, siderails up x2. To monitor.
[2019-06-02] MEDS: methylPREDNISolone SOD SUCC/PF 62.5 MG/ML VIAL IVP SCH ×5 (06:00→22:38)
[2019-06-02 06:41] LABS: BASOPHILS % (AUTO) 0.2 % (0.0-2.0); HEMATOCRIT 30.7 % (36-48); HEMOGLOBIN 9.8 g/dL (12.0-16.0); LYMPHOCYTES % (AUTO) 11.1 % (20.5-51.5); MEAN CORPUSCULAR HEMOGLOBIN 28 pg (27-31); MEAN CORPUSCULAR HGB CONC 32 % (32-36); MEAN CORPUSCULAR VOLUME 88 fL (79.0-98.0); MONOCYTES # (AUTO) 0.4 K/uL (0.0-1.0); MONOCYTES % (AUTO) 4.1 % (1.7-9.3); NEUTROPHILS # (AUTO) 7.4 K/uL (1.8-7.7); NEUTROPHILS % (AUTO) 84.6 % (40.0-70.0); PLATELET COUNT (AUTO) 271 K/uL (130-430); RED CELL DISTRIBUTION WIDTH 14.1 % (9.0-15.0); WHITE BLOOD COUNT (AUTO) 8.8 K/uL (4.8-10.8)
--- NOTE | 2019-06-02 06:55 | NUR ---
Closing notes Pt asleep, easily arousable. No s/s distress or sob noted. Oxygen via NC on. Pt refused IV restart and want IV meds to PO or IM . Endorsed to AM nurse to let Dr. Brand know. Call light within reach. Bed low, locked, siderails up x2.
--- NOTE | 2019-06-02 07:15 | NUR ---
OPENING NOTES PT AWAKE, ALERT, AND ORIENTED. IV LINE INTACT AND PATENT, NO SIGNS OF INFILTRATION NOTED. PT STATED SWELLING AT SITE EARLIER, FLUSHED LINE WITH NORMAL SALINE AND IV LINE IS PATENT. PT DENIES PAIN AT SITE, NO REDNESS NOTED. NONLABORED BREATHING NOTED, RECEIVING 3L VIA NASAL CANNULA, TOLERATING WELL. NO ACUTE DISTRESS NOTED. BED LOCKED AND IN LOWEST POSITION. ALL NEEDS MET. CALL LIGHT IN REACH. FALL AND ASPIRATION PRECAUTIONS IN PLACE. FROM NOC NURSE, PT MEDS ARE UPDATED ON MED RECON. CONTINUE TO MONITOR.
[2019-06-02 07:22] LABS: ALBUMIN 3.2 g/dL (3.4-4.8); CALCIUM 8.6 mg/dL (8.4-11.0); CREATININE 1.15 mg/dL (0.55-1.30); POTASSIUM 4.4 mmol/L (3.5-5.1); TOTAL BILIRUBIN 0.2 mg/dL (0.0-1.0)
[2019-06-02 07:30] VITALS: BP_SYST 156
[2019-06-02 08:00] VITALS: BP_SYST 138
[2019-06-02] MEDS: GABAPENTIN 300 MG CAPSULE PO SCH (08:57)
[2019-06-02] MEDS: MORPHINE SULFATE 30 MG Immediate Release TABLET PO SCH ×2 (08:58→20:54)
[2019-06-02] MEDS: DULoxetine HCL 20 MG CAPSULE.DR PO SCH (09:00)
[2019-06-02] MEDS: ISOSORBIDE MONONITRATE 30 MG TAB.ER.24H PO SCH (09:01)
[2019-06-02] MEDS: FUROSEMIDE 40 MG TABLET PO SCH (09:02)
[2019-06-02] MEDS: LISINOPRIL 20 MG TABLET PO SCH (09:02)
--- NOTE | 2019-06-02 09:02 | NUR ---
ROUTINE MEDS ROUTINE MEDS ADMINISTERED ORDERED PER MD, EDUCATION GIVEN, TOLERATED WELL. CONTINUE TO MONITOR.
--- NOTE | 2019-06-02 09:52 | NUR ---
PAIN MEDS PT C/O PAIN, ATTEMPTED TO ADMINISTER PAIN MEDS ORDERED PER MD. EXPLAINED TO PT THAT PAIN MED HAS TO BE DILUTED WITH NORMAL SALINE DUE TO PROTOCOL. PT DID NOT WANT THE PAIN MED TO BE DILUTED. EXPLAINED TO PT THAT PAIN MED HAS TO BE DILUTED THREE TIMES. PT REFUSED PAIN MED. SPOKE TO FERN, CHARGE NURSE AND WILL DISCUSS WITH MD FOR OTHER MEASURES.
--- NOTE | 2019-06-02 10:00 | NUR ---
PAGED DR. ANDERSON, BIOCHEMIST FOR DR. REYES, WAITING FOR CALL BACK.
[2019-06-02] MEDS ORDERED: ALBUTEROL SULFATE 0.083% 2.5 MG/3 ML VIAL.NEB INH PRN (12:00)
[2019-06-02] MEDS ORDERED: DIPHENHYDRAMINE HCL 50 MG CAPSULE PO ONE (12:00)
[2019-06-02] MEDS ORDERED: FERROUS SULFATE 300 MG/5 ML UDC PO ONE (12:00)
[2019-06-02] MEDS ORDERED: NITROGLYCERIN 0.4 MG TAB.SUBL SL SCH (12:00)
[2019-06-02] MEDS ORDERED: cycloSPORINE 0.05%, 0.4 ML OPHTHALMIC EMULSION DROPERETTE OP ONE (12:00)
[2019-06-02] MEDS ORDERED: NITROGLYCERIN 0.4 MG/HR PATCH.TD24 TD ONE (12:00)
[2019-06-02] MEDS ORDERED: LIDOCAINE TOPICAL OINT 5%, 35 GM TP ONE (12:00)
[2019-06-02] MEDS ORDERED: POTASSIUM CHLORIDE 20 MEQ TAB.PRT.SR PO ONE (12:00)
[2019-06-02] MEDS ORDERED: IPRATROPIUM BROMIDE 17 mCg/ACTUATION, 12.9 GM AER.W.ADAP INH SCH (12:00)
[2019-06-02] MEDS ORDERED: FLUCONAZOLE 200 MG TABLET (DIFLUCAN) PO ONE (12:00)
[2019-06-02] MEDS ORDERED: FLUTICASONE PROPIONATE 50 mCg/SPRAY 16 GM NS ONE ×2 (12:00→12:45)
--- NOTE | 2019-06-02 12:00 | NUR ---
SEEN BY DR. ANDERSON AT BEDSIDE, DISCUSSED PLAN OF CARE
[2019-06-02] MEDS ORDERED: DIPHENHYDRAMINE HCL 50 MG CAPSULE PO PRN (12:30)
[2019-06-02 12:35] VITALS: BP_SYST 154
--- NOTE | 2019-06-02 13:00 | NUR ---
SEEN BY DR. TELLEZ AT BEDSIDE
[2019-06-02] MEDS: HYDROmorphone 2 MG TAB PO PRN (13:07)
--- NOTE | 2019-06-02 13:10 | NUR ---
MEDS ADMINISTERED MEDS ORDERED PER MD, EDUCATION GIVEN, PT HAD AN EPISODE OF EMESIS. ADMINISTERED ZOFRAN ORDERED PER MD. CHECKED O2 SAT AFTER EMESIS EPISODE, O2 SAT AT 96%, PT RECEIVING OXYGEN VIA NASAL CANNULA ORDERED PER MD, TOLERATING WELL. CLEANED PT. PT CLEAN AND DRY AND CLOTHED WITH NEW GOWN. CHECKED IV LINE, FLUSHED WITH NORMAL SALINE. SWELLING NOTED AT THE SITE. PT REFUSES TO HAVE ANOTHER IV LINE INSERTED. ASKED 3X, CONTINUES TO REFUSE. MD ORDERED PICC LINE, AWAITING PICC LINE TO BE INSERTED.
[2019-06-02 13:13] LABS: CALCIUM 8.7 mg/dL (8.4-11.0); CREATININE 1.07 mg/dL (0.55-1.30); POTASSIUM 3.9 mmol/L (3.5-5.1)
--- NOTE | 2019-06-02 13:30 | NUR ---
PICC LINE CONSENT FORM SIGNED. EDUCATION GIVEN, AWAITING PICC LINE TO BE INSERTED.
[2019-06-02] MEDS ORDERED: ONDANSETRON HCL 4 MG/2 ML VIAL IM ONE (14:15)
[2019-06-02 14:27] LABS: PROTHROMBIN TIME 9.7 SECS (9.5-12.5)
--- NOTE | 2019-06-02 15:45 | NUR ---
ROUNDS PT AWAKE AND ALERT. NO ACUTE DISTRESS NOTED. NONLABORED BREATHING NOTED, RECEIVING OXYGEN ORDERED PER MD, TOLERATING WELL. ALL NEEDS MET. CALL LIGHT IN REACH. CONTINUE TO MONITOR. AWAITING FOR PICC LINE INSERTION.
[2019-06-02 16:20] VITALS: BP_SYST 134
--- NOTE | 2019-06-02 16:28 | NUR ---
Nutrition F/U RD reviewed pt's current EMR record including diet Hx, physician notes, nursing notes, pertinent labs/meds/procedures, care trends, and care activity. Admission Dx: SOB pt also found w/ COPD exacerbation, acute on chronic respiratory failure, DM, Sjorgen's per physician notes PMH: COPD, chronic respiratory failure, on home O2, CHF, DM, lupus per physician notes Current Diet Order/Nutrition Support: 2 gm Na x3 days Subjective Info: Pt was undergoing PICC line placement at time of RD visit. Current diet remains appropriate. Pt was provided w/ nutrition education 06/01/19. Skin Integrity Comment: Carmine scale: 20; no skin issues noted Current % PO 83% average x6 meals Estimated Energy Expenditure (kcals/day) 4189-1327 kcal/day (MSJ x 1-1.2 CBW for obesity, maintenance) Estimated Protein Required (g/day) 55-69 gm/day (0.8-1 gm/kg Adj IBW for obesity, maintenance) Estimated Fluid Required (l/day) Per physician d/t CHF Problem/Etiology/Signs/Symptoms Malnutrition related to morbid obesity as evidenced by BMI: 50.3 kg/m2 and 250% of IBW. *ongoing Inadequate nutritional intakes related to lack of appetite as evidenced by poor PO intake records. *improved; pt is meeting nutritional needs Expected Outcomes/Goals - Monitor appetite and PO intakes w/ goal of pt meeting at least 50% of estimated nutritional needs, labs trending WNL, normal GI function, and skin integrity/wt maintenance Dietitian Recommendations * Recommend continuing 2 gm Na diet Follow Up Low Risk: F/U in 7 days
--- NOTE | 2019-06-02 16:31 | NUR ---
Dietitian Recommendations * Recommend continuing 2 gm Na diet LP, RD Please refer to Nutrition F/U for details.
--- NOTE | 2019-06-02 17:05 | NUR ---
PICC LINE INSERTED. CHEST X-RAY DONE. PICC LINE IN CORRECT PLACE.
--- NOTE | 2019-06-02 17:37 | NUR ---
ROUNDS PT RESTING IN BED. CHEST RISE AND FALL NOTED. NONLABORED BREATHING NOTED, RECEIVING OXYGEN VIA NASAL CANNULA ORDERED PER MD, TOLERATING WELL. NO ACUTE DISTRESS NOTED. ALL NEEDS MET. CALL LIGHT IN REACH. CONTINUE TO MONITOR.
[2019-06-02] MEDS: MONTELUKAST 10 MG TABLET PO SCH (18:03)
--- NOTE | 2019-06-02 18:03 | NUR ---
ROUTINE/ PRN MEDS ROUTINE/ PRN MEDS ADMINISTERED ORDERED PER MD VIA PICC LINE. PICC LINE INTACT AND PATENT, NO SIGNS OF INFILTRATION NOTED. EDUCATION GIVEN, TOLERATED WELL. NO ACUTE DISTRESS NOTED. ALL NEEDS MET. CALL LIGHT IN REACH. CONTINUE TO MONITOR.
--- NOTE | 2019-06-02 19:00 | NUR ---
SOLUMEDROL PT WAS NOT GIVEN SOLUMEDROL AT 1400. IV LINE WAS INFILTRATED, SWELLING NOTED, AND PT REFUSED TO HAVE ANOTHER IV INSERTED. THEREFORE, WAITED FOR PICC LINE INSERTION. PT REQUESTED SOLUMEDROL AFTER PICC LINE INSERTION SINCE SHE DID NOT RECEIVE THE 1400 DOSE AND STATED THAT SHE WOULD SKIP THE 2200 DOSE DUE TO PHARMACY PROTOCOL. COMMUNICATED THIS TO CHARGE NURSE, RHONDA SHIRLEY. ATTEMPTED TO ADMINISTER SOLUMEDROL, BUT PT REQUESTED BENADRYL IV PUSH FIRST BEFORE SOLUMEDROL ADMINISTRATION. CALLED DR. ANDERSON FOR MED ORDERS. VERIFIED AND CARRIED OUT. ENDORSED TO RHONDA BARRERA.
--- NOTE | 2019-06-02 19:08 | NUR ---
Ky Becker s/w Marilu
--- NOTE | 2019-06-02 19:10 | NUR ---
OPENING NOTES RECEIVE REPORT FROM MORNING SHIFT NURSE, PATIENT AWAKE AOX4. NO SIGNS OF RESPIRATORY DISTRESS NOTED. ON 2L OF OXYGEN VIA NASAL CANNULA, ATTACHED AND SECURED. VERBALIZED GENERALIZED PAIN. GALE PICC LINE NOTED, NO INFILTRATION, NO SWELLING NOTED. CALL LIGHT WITHIN REACH, PATIENT EDUCATED TO USE CALL LIGHT WHEN ASSISTANCE IS NEEDED, PATIENT VERBALIZED UNDERSTANDING. SAFETY PRECAUTIONS IN PLACE. BED LOCKED AND IN LOWEST POSITION. WILL CONTINUE TO MONITOR.
--- NOTE | 2019-06-02 19:15 | NUR ---
SPOKE TO DR. ANDERSON REGARDING PT'S MEDICATIONS, RECEIVED ORDERS, VERIFIED AND CARRIED OUT.
--- NOTE | 2019-06-02 19:20 | NUR ---
CLOSING NOTES PT AWAKE, ALERT, AND ORIENTED. NO ACUTE DISTRESS NOTED. RECEIVING OXYGEN ORDERED PER MD, VIA NASAL CANNULA, TOLERATING WELL. PICC LINE INTACT AND PATENT, NO SIGNS OF INFILTRATION NOTED. ALL NEEDS MET. BED LOCKED AND IN LOWEST POSITION. CALL LIGHT IN REACH. FALL AND ASPIRATION PRECAUTIONS IN PLACE. GAVE REPORT TO RHONDA BARRERA.
--- NOTE | 2019-06-02 19:23 | NUR ---
OPENING NOTES PT AWAKE, ALERT, AND ORIENTED. NO ACUTE DISTRESS NOTED. VERBALIZED GENERALIZED PAIN AT THIS TIME. ON 3L OF OXYGEN VIA VIA NASAL CANNULA, ATTACHED AND SECURED. PICC LINE INTACT AND PATENT, NO SIGNS OF INFILTRATION NOTED. BED LOCKED AND IN LOWEST POSITION. CALL LIGHT IN REACH. FALL AND ASPIRATION PRECAUTIONS IN PLACE. WILL CONTINUE TO MONITOR.
[2019-06-02] MEDS: CYCLOBENZAPRINE HCL 10 MG TABLET (FLEXERIL) PO SCH (20:52)
[2019-06-02] MEDS: LIDOCAINE TOPICAL OINT 5%, 35 GM TP SCH (20:55)
[2019-06-02] MEDS: cycloSPORINE 0.05%, 0.4 ML OPHTHALMIC EMULSION DROPERETTE OP SCH (20:56)
[2019-06-02] MEDS: FLUTICASONE PROPIONATE 50 mCg/SPRAY 16 GM NS SCH (21:00)
--- NOTE | 2019-06-02 23:09 | NUR ---
NOTES Patient verbalized 8/10 Generalized pain. PRN pain medication given at this time. Patient verbalized not to dilute the Dilaudid. Patient was educated on purpose, side effects and benefits of Dilaudid and the needs to be diluted. 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 Safety precautions in place. Will continue to monitor patient
[2019-06-03 00:14] VITALS: BP_SYST 135
[2019-06-03] MEDS: ACETAMINOPHEN/CODEINE 300 MG-30 MG TABLET PO PRN ×2 (01:13→13:20)
[2019-06-03] MEDS: ALBUTEROL SULFATE 0.083% 2.5 MG/3 ML VIAL.NEB INH SCH ×4 (02:12→19:46)
[2019-06-03] MEDS: IPRATROPIUM BROM 0.5 MG/2.5 ML VIAL.NEB (ATROVENT) INH SCH ×4 (02:12→19:46)
[2019-06-03] MEDS: HYDROmorphone 1 MG INJ. 1 MG/ML AMPUL IVP PRN ×4 (02:51→21:43)
--- NOTE | 2019-06-03 02:52 | NUR ---
PAIN PATIENT VERBALIZED 8/10 GENERALIZED PAIN. PRN PAIN MEDICATION IS GIVEN. PATIENT ASKING FOR MEDICATION RECORD. SPOKE WITH CHARGE NURSE AND UTILITY CLERK, MS IVON RN VERBALIZED TO LET KNOW TOMORROW. SAFETY PRECAUTIONS IN PLACE. WILL CONTINUE TO MONITOR PATIENT
[2019-06-03] MEDS: MEROPENEM 1 GM IVPB PREMIX 50 ML IV SCH ×3 (06:59→19:54)
[2019-06-03] MEDS: methylPREDNISolone SOD SUCC/PF 62.5 MG/ML VIAL IVP SCH ×3 (07:00→21:48)
[2019-06-03] MEDS: DIPHENHYDRAMINE INJ 50 MG/ML VIAL IVP PRN ×3 (07:02→21:41)
--- NOTE | 2019-06-03 07:35 | NUR ---
received patient aaox 4. lungs bilaterally with rhonchi and diminished at the bases. has oxygen 2lnc. vitals signs stable. afebrile except bp 170/92. due to pain all over. abdomen soft and non distended. has right upper arm picc line 2 lumen port. dry and intact. obese patient. very needy. bed low position, alarmed and locked. call lights within reach. will continue to monitor patients status.
--- NOTE | 2019-06-03 08:03 | NUR ---
REFUSED TO HAVE DILAUDID 1 MG IV. AND REFUSED PO MEDS.
[2019-06-03 08:07] VITALS: BP_SYST 170
--- NOTE | 2019-06-03 08:37 | NUR ---
CLOSING NOTES PATIENT AWAKE, AOX4. NO ACUTE DISTRESS NOTED. ON 2L OF OXYGEN VIA NASAL CANNULA, TOLERATING WELL. PICC LINE INTACT AND PATENT, NO SIGNS OF INFILTRATION NOTED. ALL NEEDS MET THROUGHOUT THE SHIFT. BED LOCKED AND IN LOWEST POSITION. CALL LIGHT IN REACH. FALL AND ASPIRATION PRECAUTIONS IN PLACE. ENDORSE TO RHONDA EATON.
[2019-06-03] MEDS ORDERED: FLUTICASONE PROPIONATE 50 mCg/SPRAY 16 GM NS SCH ×2 (09:00)
[2019-06-03] MEDS ORDERED: cycloSPORINE 0.05%, 0.4 ML OPHTHALMIC EMULSION DROPERETTE OP SCH (09:00)
[2019-06-03] MEDS ORDERED: DIPHENHYDRAMINE HCL 50 MG CAPSULE PO SCH (09:00)
[2019-06-03] MEDS ORDERED: ALPRAZolam 0.25 MG TABLET PO SCH (09:00)
--- NOTE | 2019-06-03 10:53 | NUR ---
CM-note: Transfer to contracted order: s/w oncpawel [facility] # [phone], stated [facility] is contracted with [facility], no need to transfer. Dr. Lucero Nur should be the attending MD, Dr De Los Santos made aware. FS faxed to [facility] per request # [phone]-- RHONDA Spence.
--- NOTE | 2019-06-03 11:00 | NUR ---
dr lopez came and ordered ultrasound of the rt upper arm due swelling as per patients complained.
[2019-06-03] MEDS: ISOSORBIDE MONONITRATE 30 MG TAB.ER.24H PO SCH (12:16)
[2019-06-03] MEDS: FERROUS SULFATE 300 MG/5 ML UDC PO SCH (12:16)
[2019-06-03] MEDS: ASPIRIN 81 MG TAB.CHEW PO SCH (12:17)
[2019-06-03] MEDS: LISINOPRIL 20 MG TABLET PO SCH (12:18)
[2019-06-03] MEDS: FUROSEMIDE 40 MG TABLET PO SCH (12:18)
[2019-06-03] MEDS: GABAPENTIN 300 MG CAPSULE PO SCH (12:19)
[2019-06-03] MEDS: POTASSIUM CHLORIDE 20 MEQ TAB.PRT.SR PO SCH (12:19)
[2019-06-03] MEDS: MORPHINE SULFATE 30 MG Immediate Release TABLET PO SCH ×2 (12:20→21:17)
--- NOTE | 2019-06-03 12:30 | NUR ---
ultrasound of rt upper arm done at the bedside.
[2019-06-03 12:35] VITALS: BP_SYST 122; BP_SYST 147
[2019-06-03] MEDS: LIDOCAINE TOPICAL OINT 5%, 35 GM TP SCH ×2 (13:20→21:18)
[2019-06-03] MEDS: NITROGLYCERIN 0.4 MG/HR PATCH.TD24 TD SCH (13:21)
[2019-06-03] MEDS: FLUTICASONE PROPIONATE 50 mCg/SPRAY 16 GM NS SCH ×2 (13:21→21:15)
[2019-06-03] MEDS: FLUCONAZOLE 200 MG TABLET (DIFLUCAN) PO SCH (15:57)
[2019-06-03] MEDS: cycloSPORINE 0.05%, 0.4 ML OPHTHALMIC EMULSION DROPERETTE OP SCH ×2 (15:57→21:15)
--- NOTE | 2019-06-03 16:04 | NUR ---
dilaudid 1 mg iv given on picc line. flushed with 10cc normal saline. made comfortable. hob elevated. other medication po given as requested.
[2019-06-03 16:22] VITALS: BP_SYST 151
[2019-06-03] MEDS: HYDROmorphone 2 MG TAB PO PRN (18:05)
--- NOTE | 2019-06-03 18:07 | NUR ---
dilaudid 2 mg tablet po given with water, while eating dinner. assists on adls. hob elevated.
--- NOTE | 2019-06-03 18:48 | NUR ---
ASSISTS ON ADLS. HOB ELEVATED. MADE COMFORTABLE.
--- NOTE | 2019-06-03 19:15 | NUR ---
endorsed to incoming nurse Phyllis ELLIS
--- NOTE | 2019-06-03 19:30 | NUR ---
CHANGE OF SHIFT; pt. awake, when received, waiting for her next pain shot @ 1999. c/o pain allover dulce. on her chest when she coughs. HOB elevated. uses O2 @ 3l/nc, takes them off every now and then, call light at bedside, on fall risk precautions. will assess later.
[2019-06-03 20:00] VITALS: BP_SYST 132
--- NOTE | 2019-06-03 20:10 | NUR ---
NOTES: VS checked. IV Dilaudid 1 mg given for c/o chest pain due to coughing. RT here and giving breathing treatment, on O2 @ 3l/nc. occ. bouts of cough. PICC line on rt. upper arm , due IV antibiotic infused. moves extremities but maintain bed rest. cardiac pattern shows sinus rhythm. pt. using BSC. call light within reach.
--- NOTE | 2019-06-03 20:40 | NUR ---
NOTES: reassessed pt. on her pain, still 10/10.
[2019-06-03] MEDS: MONTELUKAST 10 MG TABLET PO SCH (21:00)
[2019-06-03] MEDS: CYCLOBENZAPRINE HCL 10 MG TABLET (FLEXERIL) PO SCH (21:16)
--- NOTE | 2019-06-03 21:17 | NUR ---
NOTES: pt. due po meds taken including Morphine po as scheduled for breakthrough pain. pt. needs attended. noted left arm swollen, checked for DVT with pending result.
--- NOTE | 2019-06-03 22:00 | NUR ---
NOTES: pt. still awake, IV Solumedrol given but wants Benadryl IV first via PICC line. call light within reach.
[2019-06-04] MEDS: HYDROmorphone 1 MG INJ. 1 MG/ML AMPUL IVP PRN ×5 (00:13→20:40)
--- NOTE | 2019-06-04 00:13 | NUR ---
NOTES: pt. still awake, checking on her cell phone, medicated with IV Dilaudid 1 mg for c/o chest pain due to coughing. asked for food, given sandwich, pudding and joseph crackers and coffee. repositioned self for comfort.
[2019-06-04] MEDS: IPRATROPIUM BROM 0.5 MG/2.5 ML VIAL.NEB (ATROVENT) INH SCH ×4 (01:33→19:40)
[2019-06-04] MEDS: ALBUTEROL SULFATE 0.083% 2.5 MG/3 ML VIAL.NEB INH SCH ×4 (01:33→19:40)
--- NOTE | 2019-06-04 02:30 | NUR ---
NOTES: pt. been dozing on and off. condition observed.
[2019-06-04 03:20] VITALS: BP_SYST 132
[2019-06-04] MEDS: ONDANSETRON HCL 4 MG/2 ML VIAL IVP PRN ×3 (03:26→18:31)
[2019-06-04] MEDS: MEROPENEM 1 GM IVPB PREMIX 50 ML IV SCH ×3 (04:16→20:36)
--- NOTE | 2019-06-04 04:18 | NUR ---
NOTES: pt. was nauseated and vomited earlier, nurse Ulises gave IV Zofran. medicated also for/c/o pain on her chest dulce. when coughing and some generalized pain (feet/arms). pt. venting out that she is not getting enough medicine to help her pain and now telling me that she did not have BM for 6-7 days now, will inform MD today.
--- NOTE | 2019-06-04 04:52 | NUR ---
NOTES: been taking a lot of ice ships dulce. when she is coughing, makes her throat very dry. pt. needs attended.
--- NOTE | 2019-06-04 06:00 | NUR ---
NOTES: still having pain inspite of all pain meds given. pt. saying she did not sleep. no further nausea nor vomiting. pt. used BSC with EXPORT SALES ASSISTANT help. O@ on and off.
[2019-06-04] MEDS: methylPREDNISolone SOD SUCC/PF 62.5 MG/ML VIAL IVP SCH ×3 (06:26→23:16)
[2019-06-04] MEDS: DIPHENHYDRAMINE INJ 50 MG/ML VIAL IVP PRN ×3 (06:26→23:20)
[2019-06-04] MEDS: ACETAMINOPHEN/CODEINE 300 MG-30 MG TABLET PO PRN (06:40)
--- NOTE | 2019-06-04 06:40 | NUR ---
CLOSING NOTES; pt. medicated with Tylenol with codeine for c/o headache due to coughing. pt. needs attended. IV lock via PICC line on rt. upper arm. for further care and assistance. call light within reach.will endorse to day shift.
[2019-06-04 08:00] VITALS: BP_SYST 160
--- NOTE | 2019-06-04 08:00 | NUR ---
INITIAL ROUNDS Awake, sitting in bed. Oriented, responsive to RN questions. Feeds self. No sigh of shortness of breath. Complains of severe pain, 10/10 in the chest, head and joints. Safety precautions checked. Call light within reach. Will give pain meds.
--- NOTE | 2019-06-04 10:00 | NUR ---
REFUSED Refused to discontinue telemetry monitoring as ordered. Charge nurse aware.
[2019-06-04] MEDS: FERROUS SULFATE 300 MG/5 ML UDC PO SCH (10:21)
[2019-06-04] MEDS: FLUCONAZOLE 200 MG TABLET (DIFLUCAN) PO SCH (10:23)
[2019-06-04] MEDS: POTASSIUM CHLORIDE 20 MEQ TAB.PRT.SR PO SCH (10:23)
[2019-06-04] MEDS: ASPIRIN 81 MG TAB.CHEW PO SCH (10:23)
[2019-06-04] MEDS: GABAPENTIN 300 MG CAPSULE PO SCH (10:24)
[2019-06-04] MEDS: ISOSORBIDE MONONITRATE 30 MG TAB.ER.24H PO SCH (10:24)
[2019-06-04] MEDS: MORPHINE SULFATE 30 MG Immediate Release TABLET PO SCH ×2 (10:28→23:20)
[2019-06-04] MEDS: LISINOPRIL 20 MG TABLET PO SCH (10:29)
[2019-06-04] MEDS: NITROGLYCERIN 0.4 MG/HR PATCH.TD24 TD SCH (10:31)
[2019-06-04] MEDS: FUROSEMIDE 40 MG TABLET PO SCH (10:32)
[2019-06-04] MEDS: cycloSPORINE 0.05%, 0.4 ML OPHTHALMIC EMULSION DROPERETTE OP SCH ×2 (10:34→21:00)
[2019-06-04] MEDS: FLUTICASONE PROPIONATE 50 mCg/SPRAY 16 GM NS SCH ×2 (10:34→20:38)
[2019-06-04] MEDS: LIDOCAINE TOPICAL OINT 5%, 35 GM TP SCH ×2 (10:35→20:38)
[2019-06-04] MEDS: DOCUSATE SODIUM 100 MG CAPSULE PO SCH ×2 (11:18→20:44)
--- NOTE | 2019-06-04 11:30 | NUR ---
NURSING ROUNDS Assisted patient to the commode. Voided good amount of yellowish urine.
[2019-06-04 12:00] VITALS: BP_SYST 178
[2019-06-04 12:13] VITALS: BP_SYST 160
--- NOTE | 2019-06-04 12:30 | NUR ---
MD ROUNDS Seen by Dr. Brand at bedside and aware that patient's wants cough medicine and stool softener.
[2019-06-04] MEDS: PROMETHAZINE HCL/CODEINE 6.25-10 mg/5 mL UDC PO PRN ×2 (12:32→23:18)
--- NOTE | 2019-06-04 15:30 | NUR ---
Notes- complain of generalized pain and asked for Dilaudid. . medicated as ordered.
[2019-06-04 16:59] VITALS: BP_SYST 166
[2019-06-04] MEDS: MILK OF MAGNESIA 30 ML UDC PO PRN (17:33)
[2019-06-04] MEDS: HYDROmorphone 2 MG TAB PO PRN (17:42)
[2019-06-04] MEDS: MONTELUKAST 10 MG TABLET PO SCH (17:42)
[2019-06-04] MEDS: FLUTICASONE 44 mcg/ACTUATION MDI AER.W.ADAP INH SCH (17:56)
--- NOTE | 2019-06-04 18:55 | NUR ---
CLOSING NOTES Complained of nausea. Medicated. Sitting on chair. No sign of distress. Eating dinner. All needs met throughout shift. Will endorse.
--- NOTE | 2019-06-04 19:45 | NUR ---
Initial note: Received report from cachorro ELLIS. Patient is sitting in chair at bedside, no acute distress. Tolerating 2L NC. GALE PICC line dressing c/d/i. Call light is with patient. Safety, fall precautions in place. Will continue with plan of care.
--- NOTE | 2019-06-04 20:00 | NUR ---
Refused downgrade: Notified patient regarding order to downgrade to med-surg from telemetry. Patient refused to removed telemetry monitoring equipment despite education. Patient was informed she will be paying [id number] for staying on telemetry monitoring, patient verbalized understanding, still refused to remove equipment. Charge nurse is aware.
[2019-06-04] MEDS: CYCLOBENZAPRINE HCL 10 MG TABLET (FLEXERIL) PO SCH (20:37)
--- NOTE | 2019-06-04 20:40 | NUR ---
Pain: Patient complaining of severe generalized pain. Administered Dilaudid 1 MG intravenously via GALE PICC line. Education provided regarding indications, side effects, patient verbalized understanding. Call light with patient. Will continue monitoring.
[2019-06-04 20:55] VITALS: BP_SYST 183
--- NOTE | 2019-06-04 22:30 | NUR ---
Dr. Sharma rounds: MD at bedside to assess and examine patient. No verbal orders received, will follow-up for any POM orders.
--- NOTE | 2019-06-04 23:20 | NUR ---
Itching: Patient stated that Solu-Medrol makes her have allergic reactions, requested Benadryl prior to Solu-Medrol administration. Administered Benadryl 50 MG intravenously via GALE PICC line. Education provided regarding indications, side effects, patient verbalized understanding. Call light with patient. Will continue monitoring.
[2019-06-05] MEDS: LISINOPRIL 20 MG TABLET PO SCH ×3 (00:02→21:16)
[2019-06-05 00:42] VITALS: BP_SYST 126
[2019-06-05 01:15] VITALS: BP_SYST 126; BP_SYST 139
[2019-06-05] MEDS: ALBUTEROL SULFATE 0.083% 2.5 MG/3 ML VIAL.NEB INH SCH ×4 (01:45→19:55)
[2019-06-05] MEDS: IPRATROPIUM BROM 0.5 MG/2.5 ML VIAL.NEB (ATROVENT) INH SCH ×4 (01:45→19:55)
[2019-06-05] MEDS: HYDROmorphone 1 MG INJ. 1 MG/ML AMPUL IVP PRN ×5 (01:56→21:56)
--- NOTE | 2019-06-05 01:56 | NUR ---
MED GIVEN: Patient was complaining of pain. Patients pain level 10/10 (generalized). Gave pain medication Dilaudid PRN 1mg IV.
[2019-06-05] MEDS: PROMETHAZINE HCL/CODEINE 6.25-10 mg/5 mL UDC PO PRN ×3 (03:44→15:31)
--- NOTE | 2019-06-05 03:45 | NUR ---
Cough: Patient is complaining of a cough. Phenergan/Codeine 6.25/10MG administered as indicated. Patient tolerated well. Call light with patient. Will continue to monitor.
[2019-06-05] MEDS: MEROPENEM 1 GM IVPB PREMIX 50 ML IV SCH ×3 (03:48→21:12)
[2019-06-05] MEDS: DIPHENHYDRAMINE INJ 50 MG/ML VIAL IVP PRN ×3 (05:34→21:25)
[2019-06-05] MEDS: methylPREDNISolone SOD SUCC/PF 62.5 MG/ML VIAL IVP SCH ×3 (06:10→21:26)
--- NOTE | 2019-06-05 06:21 | NUR ---
Closing note: Patient is resting comfortably in bed, woke up momentarily, denied pain at this time. Even and unlabored breathing on room air. Abdominal dressings clean, dry, intact. IV fluids infusing as ordered. All needs met. Safety, fall precautions observed. Will endorse care to dayshift RN.
[2019-06-05] MEDS: FLUTICASONE 44 mcg/ACTUATION MDI AER.W.ADAP INH SCH ×2 (06:30→19:00)
[2019-06-05 08:00] VITALS: BP_SYST 150
[2019-06-05] MEDS: ONDANSETRON HCL 4 MG/2 ML VIAL IVP PRN ×2 (09:15→15:06)
[2019-06-05] MEDS: FUROSEMIDE 40 MG/4 ML VIAL IVP SCH ×2 (09:16→21:13)
[2019-06-05] MEDS: GABAPENTIN 300 MG CAPSULE PO SCH (09:17)
[2019-06-05] MEDS: FLUCONAZOLE 200 MG TABLET (DIFLUCAN) PO SCH (09:17)
[2019-06-05] MEDS: FLUTICASONE PROPIONATE 50 mCg/SPRAY 16 GM NS SCH ×2 (09:17→21:14)
[2019-06-05] MEDS: DOCUSATE SODIUM 100 MG CAPSULE PO SCH ×2 (09:18→21:14)
[2019-06-05] MEDS: ASPIRIN 81 MG TAB.CHEW PO SCH ×2 (09:19→10:15)
[2019-06-05] MEDS: FERROUS SULFATE 300 MG/5 ML UDC PO SCH (09:20)
[2019-06-05] MEDS: POTASSIUM CHLORIDE 20 MEQ TAB.PRT.SR PO SCH (09:21)
[2019-06-05] MEDS: MORPHINE SULFATE 30 MG Immediate Release TABLET PO SCH ×2 (09:21→21:00)
--- NOTE | 2019-06-05 09:38 | NUR ---
rounds due meds given as ordered at bedside. dr rai came to see patient at bedside.
[2019-06-05] MEDS: ISOSORBIDE MONONITRATE 30 MG TAB.ER.24H PO SCH (10:15)
[2019-06-05] MEDS: NITROGLYCERIN 0.4 MG/HR PATCH.TD24 TD SCH (10:15)
[2019-06-05] MEDS: LIDOCAINE TOPICAL OINT 5%, 35 GM TP SCH ×2 (10:16→21:17)
[2019-06-05 11:12] VITALS: BP_SYST 136
--- NOTE | 2019-06-05 11:20 | NUR ---
rounds pt's dilaudid was due . explained to patient that will have to dilute it with 1 cc ns. pt got upset and insist that it has to be as is. insisted that too much ns flushed mess up her vein. explained back topatient that she already has a picc line. insisted to talk to the patient relation personnel. tricia went and talked with patient.
[2019-06-05 11:35] LABS: BASOPHILS % (AUTO) 0.3 % (0.0-2.0); HEMATOCRIT 31.5 % (36-48); LYMPHOCYTES # (AUTO) 0.7 K/uL (1.0-5.5); LYMPHOCYTES % (AUTO) 5.5 % (20.5-51.5); MEAN CORPUSCULAR HEMOGLOBIN 28 pg (27-31); MEAN CORPUSCULAR HGB CONC 32 % (32-36); MEAN CORPUSCULAR VOLUME 87 fL (79.0-98.0); MONOCYTES # (AUTO) 0.5 K/uL (0.0-1.0); MONOCYTES % (AUTO) 3.7 % (1.7-9.3); NEUTROPHILS # (AUTO) 11.8 K/uL (1.8-7.7); NEUTROPHILS % (AUTO) 90.5 % (40.0-70.0); PLATELET COUNT (AUTO) 281 K/uL (130-430); RED BLOOD CELL COUNT(AUTO) 3.61 MIL/uL (4.2-6.2)
[2019-06-05 11:49] LABS: CALCIUM 8.5 mg/dL (8.4-11.0); CREATININE 1.38 mg/dL (0.55-1.30); POTASSIUM 4.2 mmol/L (3.5-5.1)
[2019-06-05 11:53] LABS: ALBUMIN 3.6 g/dL (3.4-4.8); TOTAL BILIRUBIN 0.3 mg/dL (0.0-1.0)
--- NOTE | 2019-06-05 13:21 | NUR ---
rounds pt was given benadryl 50 mg ivp and gave the dilaudid 1mg with 1cc of ns. requested for zofran at this and explained that it would be due at 315 pm. she stated that it should only be prn and no time indication.
[2019-06-05 15:00] VITALS: BP_SYST 140
[2019-06-05] MEDS: cycloSPORINE 0.05%, 0.4 ML OPHTHALMIC EMULSION DROPERETTE OP SCH ×2 (15:07→21:44)
[2019-06-05] MEDS: ACETAMINOPHEN/CODEINE 300 MG-30 MG TABLET PO PRN (15:18)
[2019-06-05] MEDS: MILK OF MAGNESIA 30 ML UDC PO PRN (15:31)
--- NOTE | 2019-06-05 17:00 | NUR ---
rounds pt was vomiting with light greenish drainage. med with pain med. requested gown to be changed and dine x2. pt stated that is is already 2019 and experiencing racism. stayed at bedside and listen to patient's frsutration. still insisting re the no dilution of dilaudid.
[2019-06-05] MEDS: BISACODYL 10 MG/SUPPOSITORY RC PRN (17:15)
[2019-06-05] MEDS: MONTELUKAST 10 MG TABLET PO SCH ×2 (18:00→21:17)
--- NOTE | 2019-06-05 19:08 | NUR ---
OPENING NOTES RECEIVED PATIENT IN BED AAO X4. BREATHING UNLABORED ON 02 3L NC. BED IN LOWEST LOCKED POSITION. CALL LIGHT WITH IN EASY REACH.
[2019-06-05 21:05] VITALS: BP_SYST 139
[2019-06-05] MEDS: CYCLOBENZAPRINE HCL 10 MG TABLET (FLEXERIL) PO SCH (21:15)
--- NOTE | 2019-06-05 21:44 | NUR ---
MED PASS PATIENT DUE MEDICATIONS GIVEN. VITAL SIGNS STABLE. ASSISTED WITH BEDSIDE COMMODE USE.
--- NOTE | 2019-06-05 21:56 | NUR ---
PAIN MGT PATIENT MEDICATED WITH DILAUDID 1 MG IVP FOR C/O CHEST AREA/HEADACHE/KNEE PAIN ORDERED. VITAL SIGNS STABLE.
--- NOTE | 2019-06-06 00:25 | NUR ---
COMMODE PATIENT ASSISTED WITH COMMODE USE. HS SNACK PROVIDED PER PATIENT REQUEST.
[2019-06-06 00:38] VITALS: BP_SYST 133
[2019-06-06] MEDS: IPRATROPIUM BROM 0.5 MG/2.5 ML VIAL.NEB (ATROVENT) INH SCH ×4 (01:55→20:10)
[2019-06-06] MEDS: ALBUTEROL SULFATE 0.083% 2.5 MG/3 ML VIAL.NEB INH SCH ×3 (01:55→20:10)
[2019-06-06] MEDS: PROMETHAZINE HCL/CODEINE 6.25-10 mg/5 mL UDC PO PRN ×4 (02:16→15:30)
[2019-06-06] MEDS: HYDROmorphone 1 MG INJ. 1 MG/ML AMPUL IVP PRN ×5 (02:19→21:14)
--- NOTE | 2019-06-06 02:19 | NUR ---
PAIN MGT/COUGH COUGH MEDICINE GIVEN AND DILAUDID FOR C/O PAIN. VITAL SIGNS STABLE. CALL LIGHT WITH IN EASY REACH.
[2019-06-06] MEDS: DIPHENHYDRAMINE INJ 50 MG/ML VIAL IVP PRN ×2 (06:14→21:14)
[2019-06-06] MEDS: methylPREDNISolone SOD SUCC/PF 62.5 MG/ML VIAL IVP SCH (06:14)
--- NOTE | 2019-06-06 06:14 | NUR ---
MED PASS PATIENT DUE MEDICATIONS GIVEN ORDERED. PATIENT INSISTING HER DILAUDID IV NOT TO BE DILUTED. EXPLAINED TO PATIENT ITS OUR PROTOCOL FOR PATIENT SAFETY TO DILUTE DILAUDID WITH NORMAL SALINE BUT DO NOT BELIEVE OTHERWISE. PER PATIENT WE ARE VIOLATING HER PATIENT RIGHT IF WE KEEP DOING IT AND WE ARE CROSS CONTAMINATING HER MEDICATION BY DOING SO. PATIENT DOES NOT APPRECIATE ANY EXPLANATION AND STILL INSISTING.
[2019-06-06] MEDS: ONDANSETRON HCL 4 MG/2 ML VIAL IVP PRN ×2 (06:32→12:01)
[2019-06-06] MEDS: FLUTICASONE 44 mcg/ACTUATION MDI AER.W.ADAP INH SCH ×2 (07:00→19:00)
--- NOTE | 2019-06-06 07:15 | NUR ---
CLOSING NOTES PATIENT NEEDS ATTENDED. CALL LIGHT WITH IN REACH.
--- NOTE | 2019-06-06 07:30 | NUR ---
OPENING NOTES: RECEIVED PATIENT FROM CART DRIVER NURSE. PATIENT IS AWAKE AND ALERT x4 LAYING DOWN IN BED. PATIENT STATES SHE HAS PAIN 9/10. PATIENT INFORMED PRN PAIN MEDICATIONS WILL BE GIVEN WHEN AVAILABLE. PATIENT IS TOLERATING OXYGEN ON 3 L NASAL CANNULA WITH NO SIGNS OF DISTRESS OR SHORTNESS OF BREATH NOTED. IV SITE IS PATENT WITH NO SIGNS OF INFILTRATION NOTED. PATIENT IN STABLE CONDITION. SAFETY, FALL, AND ASPIRATION PRECAUTIONS ARE IN PLACE. BED LOCKED IN LOWEST POSITION WITH CALL LIGHT IN REACH. WILL CONTINUE TO MONITOR PATIENT FOR ANY CHANGES.
[2019-06-06 08:35] VITALS: BP_SYST 159
[2019-06-06] MEDS: cycloSPORINE 0.05%, 0.4 ML OPHTHALMIC EMULSION DROPERETTE OP SCH ×2 (09:00→20:53)
[2019-06-06] MEDS: MORPHINE SULFATE 30 MG Immediate Release TABLET PO SCH ×3 (09:00→21:30)
[2019-06-06] MEDS ORDERED: MEROPENEM 1 GM IVPB PREMIX 50 ML IV SCH (09:45)
[2019-06-06] MEDS ORDERED: methylPREDNISolone SOD SUCC 40 MG/ML VIAL IVP ONE (10:00)
[2019-06-06] MEDS ORDERED: FUROSEMIDE 40 MG/4 ML VIAL IVP ONE (10:00)
--- NOTE | 2019-06-06 10:15 | NUR ---
RN ROUNDS: PATIENT IS AWAKE AND ALERT x4 LAYING DOWN IN BED. PATIENT GIVEN MEDICATIONS. PATIENT TOLERATED TAKING THEM WELL. PATIENT TOLERATING OXYGEN AT 3 L NASAL CANNULA WITH NO SIGNS OF DISTRESS OR SHORTNESS OF BREATH NOTED. PATIENT IN STABLE CONDITION. WILL CONTINUE TO MONITOR PATIENT FOR ANY CHANGES.
[2019-06-06] MEDS: FERROUS SULFATE 300 MG/5 ML UDC PO SCH (10:31)
[2019-06-06] MEDS: DOCUSATE SODIUM 100 MG CAPSULE PO SCH ×2 (10:31→20:53)
[2019-06-06] MEDS: ISOSORBIDE MONONITRATE 30 MG TAB.ER.24H PO SCH (10:31)
[2019-06-06] MEDS: LISINOPRIL 20 MG TABLET PO SCH ×2 (10:32→20:54)
[2019-06-06] MEDS: ASPIRIN 81 MG TAB.CHEW PO SCH (10:32)
[2019-06-06] MEDS: FLUCONAZOLE 200 MG TABLET (DIFLUCAN) PO SCH (10:33)
[2019-06-06] MEDS: POTASSIUM CHLORIDE 20 MEQ TAB.PRT.SR PO SCH (10:33)
[2019-06-06] MEDS: GABAPENTIN 300 MG CAPSULE PO SCH (10:34)
[2019-06-06] MEDS: NITROGLYCERIN 0.4 MG/HR PATCH.TD24 TD SCH (10:35)
[2019-06-06] MEDS: LIDOCAINE TOPICAL OINT 5%, 35 GM TP SCH ×2 (10:48→20:53)
[2019-06-06] MEDS: FLUTICASONE PROPIONATE 50 mCg/SPRAY 16 GM NS SCH ×2 (10:48→20:53)
[2019-06-06] MEDS: MEROPENEM 1 GM in NS 100 ML IV SCH ×2 (10:50→17:46)
--- NOTE | 2019-06-06 10:53 | NUR ---
PAIN MEDS: PATIENT INSISTED HER DILAUDID IV NOT TO BE DILUTED BY NORMAL SALINE. EXPLAINED TO PATIENT IT IS OUR PROTOCOL FOR PATIENT SAFETY TO DILUTE DILAUDID WITH NORMAL SALINE. PER PATIENT WE ARE VIOLATING HER PATIENT RIGHT IF WE KEEP DOING IT AND WE ARE CROSS CONTAMINATING HER MEDICATION BY DOING SO. PATIENT DOES NOT APPRECIATE ANY EXPLANATION AND STILL INSISTING TO RECEIVE HER PAIN MEDICATION WITHOUT DILUTING.
--- NOTE | 2019-06-06 11:18 | NUR ---
PHYSICAL THERAPY CO-SIGN The Physical Therapy Progress Notes documented by Food Broker have been reviewed. Reviewed/Co-Signed by: Jaspreet Ryan PT Documentation Done by: SAMIR LU PTA Addendum: 06/06/19 at 1121 by Jaspreet Ryan PT Amended: Links added.
--- NOTE | 2019-06-06 11:19 | NUR ---
PHYSICAL THERAPY CO-SIGN The Physical Therapy Progress Notes documented by Fire Lieutenant Marine have been reviewed. Reviewed/Co-Signed by: Jaspreet Ryan PT Documentation Done by: SAMIR LU PTA Addendum: 06/06/19 at 1121 by Jaspreet Ryan PT Amended: Links added.
--- NOTE | 2019-06-06 11:20 | NUR ---
PHYSICAL THERAPY CO-SIGN The Physical Therapy Progress Notes documented by Heating Element Winder have been reviewed. Reviewed/Co-Signed by: Jaspreet Ryan PT Documentation Done by: SAMIR UL PTA Addendum: 06/06/19 at 1121 by Jaspreet Ryan PT Amended: Links added.
--- NOTE | 2019-06-06 12:20 | NUR ---
RN ROUNDS: PATIENT IS AWAKE AND ALERT x4 LAYING DOWN IN BED. NO SIGNS OF DISTRESS OR SHORTNESS OF BREATH NOTED. PATIENT IN STABLE CONDITION. WILL CONTINUE TO MONITOR PATIENT FOR ANY CHANGES.
[2019-06-06 12:31] VITALS: BP_SYST 138
--- NOTE | 2019-06-06 14:25 | NUR ---
RN ROUNDS: PATIENT IS AWAKE AND ALERT x4 LAYING DOWN IN BED. PATIENT STATES HER PAIN IS AT A 9/10. PATIENT INFORMED HER PAIN MEDICATION IS ALMOST TIME TO BE DUE. WILL BRING WHEN AVAILABLE. PATIENT IN STABLE CONDITION. WILL CONTINUE TO MONITOR PATIENT FOR ANY CHANGES.
[2019-06-06] MEDS: MILK OF MAGNESIA 30 ML UDC PO PRN (15:09)
--- NOTE | 2019-06-06 16:18 | NUR ---
RN ROUNDS: PATIENT IS AWAKE AND ALERT x4 LAYING DOWN IN BED. PATIENT STATES SHE HAS A HEADACHE. PRN TYLENOL TO BE GIVEN. PATIENT IS TOLERATING OXYGEN ON 3 L NASAL CANNULA WITH NO SIGNS OF DISTRESS OR SHORTNESS OF BREATH NOTED. PATIENT IN STABLE CONDITION. WILL CONTINUE TO MONITOR PATIENT FOR ANY CHANGES.
[2019-06-06] MEDS: ACETAMINOPHEN/CODEINE 300 MG-30 MG TABLET PO PRN (16:43)
[2019-06-06 16:45] VITALS: BP_SYST 131
--- NOTE | 2019-06-06 18:40 | NUR ---
CLOSING NOTES: PATIENT IS AWAKE AND ALERT x4 LAYING DOWN IN BED. PATIENT IS TOLERATING OXYGEN ON 3 L NASAL CANNULA WITH NO SIGNS OF DISTRESS OR SHORTNESS OF BREATH NOTED. IV SITE IS PATENT WITH NO SIGNS OF INFILTRATION NOTED. PATIENT IN STABLE CONDITION. SAFETY, FALL, AND ASPIRATION PRECAUTIONS REMAINED IN PLACE THROUGHOUT THE SHIFT. BED LOCKED IN LOWEST POSITION WITH CALL LIGHT IN REACH. WILL ENDORSE PATIENT CARE TO ONCOMING PNEUMATIC SYSTEM CONVEYOR OPERATOR NURSE.
--- NOTE | 2019-06-06 19:45 | NUR ---
OPENING NOTES Received report from RHONDA Chaves. Patient is resting in bed, awake, alert, oriented x 4, breathing evenly and nonlabored on 3L of oxygen via NC. Patient has a PICC line on the GALE, patent and benign, no s/s of infection or infiltration at this time. Educated patient on plan of care, fall/safety/aspiration precautions, call light system, patient stated understanding with return demonstration. Bed is locked, armed, and at lowest position, will continue to monitor.
[2019-06-06 20:15] VITALS: BP_SYST 143
[2019-06-06] MEDS: methylPREDNISolone SOD SUCC 40 MG/ML VIAL IVP SCH (20:53)
--- NOTE | 2019-06-06 20:53 | NUR ---
MEDICATIONS/ROUNDS Patient is resting in bed, awake, breathing evenly and nonlabored on 3L of oxygen via NC. Educated patient on due medications, patient stated understanding. Administered medications, patient tolerated them well. Patient was very anxious, had to educate/explain multiple times, asked to talk to home supervisor regarding pain medication. No other needs at this time. Fall/safety/aspiration precautions, will continue to monitor.
[2019-06-06] MEDS: CYCLOBENZAPRINE HCL 10 MG TABLET (FLEXERIL) PO SCH (20:54)
--- NOTE | 2019-06-06 21:14 | NUR ---
PAIN MEDICATION GIVEN Patient is resting in bed, awake, breathing evenly and nonlabored on 3L of oxygen via NC. 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 Patient still anxious, listened to the patient's concerns. No other needs at this time. Fall/safety/aspiration precautions, will continue to monitor.
--- NOTE | 2019-06-06 23:30 | NUR ---
ROUNDS Patient is resting in bed, awake, breathing evenly and nonlabored on 3L of oxygen via NC. Patient still very anxious, inconsolable. Assisted to the bedside commode. No other needs at this time. Fall/safety/aspiration precautions, will continue to monitor.
[2019-06-07] MEDS: MEROPENEM 1 GM in NS 100 ML IV SCH ×3 (01:19→17:56)
[2019-06-07] MEDS: PROMETHAZINE HCL/CODEINE 6.25-10 mg/5 mL UDC PO PRN ×3 (01:20→15:03)
[2019-06-07] MEDS: BISACODYL 10 MG/SUPPOSITORY RC PRN (01:20)
--- NOTE | 2019-06-07 01:20 | NUR ---
PAIN AND COUGH MEDICATION GIVEN, SUPPOSITORY GIVEN Patient is resting in bed, awake, breathing evenly and nonlabored on 3L of oxygen via NC. Patient was complaining of severe pain, also complained of persistent coughing and feeling bloated and unable to have a bowel movement, educated patient on medications. Administered pain, cough, and suppository medication, patient tolerated it well. Patient was still anxious, listened to the patient's concerns, encouraged patient to express feelings. No other needs at this time. Fall/safety/aspiration precautions, will continue to monitor.
[2019-06-07] MEDS: HYDROmorphone 1 MG INJ. 1 MG/ML AMPUL IVP PRN ×5 (01:22→18:58)
[2019-06-07] MEDS: ALBUTEROL SULFATE 0.083% 2.5 MG/3 ML VIAL.NEB INH SCH ×4 (02:20→20:31)
[2019-06-07] MEDS: IPRATROPIUM BROM 0.5 MG/2.5 ML VIAL.NEB (ATROVENT) INH SCH ×4 (02:20→20:31)
[2019-06-07 02:28] VITALS: BP_SYST 150
--- NOTE | 2019-06-07 03:15 | NUR ---
ROUNDS Patient is resting in bed, awake, breathing evenly and nonlabored on 3L of oxygen via NC. Patient moans and cries intermittently, inconsolable. No other needs at this time. Fall/safety/aspiration precautions, will continue to monitor.
[2019-06-07] MEDS: MILK OF MAGNESIA 30 ML UDC PO PRN (04:13)
[2019-06-07] MEDS: ONDANSETRON HCL 4 MG/2 ML VIAL IVP PRN ×2 (04:14→13:01)
[2019-06-07] MEDS: HYDROmorphone 2 MG TAB PO PRN ×3 (04:16→15:59)
--- NOTE | 2019-06-07 04:26 | NUR ---
ORAL PAIN MEDICATION AND NAUSEA/VOMITING MEDICATION GIVEN Patient is resting in bed, awake, breathing evenly and nonlabored on 3L of oxygen via NC. Patient complained of nausea/vomiting and severe pain, educated patient on medications, patient stated understanding. Administered medications, patient tolerated them well. No other needs at this time. Fall/safety/aspiration precautions, will continue to monitor.
--- NOTE | 2019-06-07 05:22 | NUR ---
PAIN MEDICATION GIVEN Patient is resting in bed, awake, breathing evenly and nonlabored on 3L of oxygen via NC. Patient is still complaining of severe pain, insists on another pain medication, educated patient on pain medication, patient stated understanding. Administered medication, patient tolerated it well. Assisted patient to the bedside commode. No other needs at this time. Fall/safety/aspiration precautions, will continue to monitor.
[2019-06-07] MEDS: methylPREDNISolone SOD SUCC 40 MG/ML VIAL IVP SCH ×2 (06:34→17:56)
[2019-06-07] MEDS: DIPHENHYDRAMINE INJ 50 MG/ML VIAL IVP PRN ×3 (06:35→22:55)
--- NOTE | 2019-06-07 06:40 | NUR ---
CLOSING NOTES Patient is resting in bed, awake, breathing evenly and nonlabored on 3L of oxygen via NC. Patient wants benadryl to be given before Solumedrol, saying that it "reduces her body's reaction to Solumedrol." Educated patient on medications, patient stated understanding. Administered medications, patient tolerated them well. Daily weight was taken earlier. Patient was anxious, moaning, crying and complaining intermittently throughout the shift. Educated and encouraged patient to express feelings throughout the shift, she was also able to speak to the supervisor show operations during the shift. Needs met throughout the shift. No other needs at this time. Fall/safety/aspiration precautions, will endorse care to morning shift RN.
[2019-06-07] MEDS: FLUTICASONE 44 mcg/ACTUATION MDI AER.W.ADAP INH SCH ×2 (07:00→18:25)
[2019-06-07 07:35] LABS: CALCIUM 8.1 mg/dL (8.4-11.0); CHLORIDE 96 mmol/L (98-107); GLUCOSE 204 mg/dL (70-99); POTASSIUM 5.2 mmol/L (3.5-5.1); SODIUM SERUM 134 mmol/L (136-145); UREA NITROGEN, BLOOD 47 mg/dL (8-21)
[2019-06-07 07:37] VITALS: BP_SYST 155
--- NOTE | 2019-06-07 07:39 | NUR ---
INITIAL NOTES Awake in bed, alert and oriented. Receiving breathing treatment. No sign of shortness of breath or distress. PICC line in place. Safety precautions placed. Call light within reach. Will monitor.
[2019-06-07 07:46] LABS: ANION GAP < 3 (5-15); GFR AFRICAN AMERICAN 59 mL/min (>90)
[2019-06-07] MEDS: LIDOCAINE TOPICAL OINT 5%, 35 GM TP SCH ×2 (08:23→21:25)
[2019-06-07] MEDS: FLUTICASONE PROPIONATE 50 mCg/SPRAY 16 GM NS SCH ×2 (08:23→21:25)
[2019-06-07] MEDS: MORPHINE SULFATE 30 MG Immediate Release TABLET PO SCH ×3 (08:24→21:22)
[2019-06-07] MEDS: FUROSEMIDE 40 MG/4 ML VIAL IVP SCH (08:25)
[2019-06-07] MEDS: FLUCONAZOLE 200 MG TABLET (DIFLUCAN) PO SCH (08:25)
[2019-06-07] MEDS: NITROGLYCERIN 0.4 MG/HR PATCH.TD24 TD SCH (08:26)
[2019-06-07] MEDS: FERROUS SULFATE 300 MG/5 ML UDC PO SCH (08:26)
[2019-06-07] MEDS: ASPIRIN 81 MG TAB.CHEW PO SCH (08:27)
[2019-06-07] MEDS: LISINOPRIL 20 MG TABLET PO SCH ×2 (08:27→21:24)
[2019-06-07] MEDS: DOCUSATE SODIUM 100 MG CAPSULE PO SCH ×2 (08:27→21:21)
[2019-06-07] MEDS: ISOSORBIDE MONONITRATE 30 MG TAB.ER.24H PO SCH (08:27)
[2019-06-07] MEDS: cycloSPORINE 0.05%, 0.4 ML OPHTHALMIC EMULSION DROPERETTE OP SCH ×2 (08:28→21:25)
[2019-06-07] MEDS: GABAPENTIN 300 MG CAPSULE PO SCH (08:28)
[2019-06-07] MEDS: POTASSIUM CHLORIDE 20 MEQ TAB.PRT.SR PO SCH (09:00)
--- NOTE | 2019-06-07 09:03 | NUR ---
k- dur held at this time. potassium level is 5.2
--- NOTE | 2019-06-07 09:40 | NUR ---
MD ROUNDS Dr. De Los Santos made rounds. Patient asked for a medication for her acid reflux. Patient also informed MD that current laxatives are not working.
--- NOTE | 2019-06-07 09:55 | NUR ---
BENADRYL Patient complains of burning and itchiness inside her body. Asked for a dose benadryl, but it is not due yet. Dr. De Los Santos made aware. Ordered to give one time dose of benadryl.
[2019-06-07] MEDS ORDERED: DIPHENHYDRAMINE INJ 50 MG/ML VIAL IVP ONE (10:00)
--- NOTE | 2019-06-07 12:12 | NUR ---
BLOOD SUGAR Patient wants her blood sugar to be checked. Dr. De Los Santos made aware. Received new orders.
[2019-06-07 12:17] VITALS: BP_SYST 139; BP_SYST 153
[2019-06-07] MEDS ORDERED: SODIUM PHOSPHATE,MONO-DIBASIC 133 ML ENEMA RC ONE (12:30)
[2019-06-07] MEDS ORDERED: SODIUM POLYSTYRENE SULFONATE 15 GM/60 ML UDBTL PO ONE (12:30)
[2019-06-07] MEDS ORDERED: PANTOPRAZOLE SODIUM 40 MG TAB PO ONE (12:30)
[2019-06-07] MEDS: INSULIN REGULAR, HUMAN 100 UNITS/ML, 10 ML VIAL (humuLIN R) SUBCUT PRN ×3 (12:58→21:49)
--- NOTE | 2019-06-07 13:02 | NUR ---
PHYSICAL THERAPY CO-SIGN The Physical Therapy Progress Notes documented by Creosoting Engineer have been reviewed. Reviewed/Co-Signed by: Jaspreet Ryan PT Documentation Done by: SAMIR LU PTA Addendum: 06/07/19 at 1303 by Jaspreet Ryan PT Amended: Links added.
--- NOTE | 2019-06-07 14:10 | NUR ---
NURSING ROUNDS Patient is still working on taking the Kayexalate. Requested another combination of vanilla ice cream and raspberry jam. Provided.
--- NOTE | 2019-06-07 16:00 | NUR ---
ENEMA Enema administered. Assisted patient to bedside commode. Complained of itchiness and redness around perianal area. Requested for A & D ointment. Refused other creams available on the floor.
--- NOTE | 2019-06-07 16:30 | NUR ---
BOWEL MOVEMENT Medium bowel movement noted.
[2019-06-07] MEDS: VITS A AND D/WHITE PET/LANOLIN 113.4 GM TUBE TP PRN (16:35)
[2019-06-07 17:00] VITALS: BP_SYST 138
[2019-06-07] MEDS: MONTELUKAST 10 MG TABLET PO SCH (17:56)
--- NOTE | 2019-06-07 18:38 | NUR ---
CLOSING NOTES Awake and alert in bed. Eating dinner. No sign of distress. Antibiotic IV infusing well. All needs met throughout shift. Will endorse.
--- NOTE | 2019-06-07 19:30 | NUR ---
Opening notes Received report. Patient is resting in bed. No signs of distress noted. Breathing even and unlabored on 3 L NC. GALE PICC, patent and intact, no signs of infiltration noted. Patient provided with ice chips, no other needs. Call light with the patient. Safety precautions in place.
[2019-06-07 20:00] VITALS: BP_SYST 135
--- NOTE | 2019-06-07 21:00 | NUR ---
Medications given. Educated the action and side effects of medications. Patient verbalized understanding and tolerated well. Patient assisted to bedside commode. 600 ml out of yellow urine. Patient back in bed. No signs of distress noted. Breathing even and unlabored. Call light with the patient. Safety precautions in place.
[2019-06-07] MEDS: CYCLOBENZAPRINE HCL 10 MG TABLET (FLEXERIL) PO SCH (21:24)
--- NOTE | 2019-06-08 | NUR ---
Benadryl patient complain of itchiness. PRN benadryl given. Educated the action and side effects of medications. Patient verbalized understanding and tolerated well. No other needs. Call light with the patient. Safety precautions in place.
[2019-06-08] MEDS: ALBUTEROL SULFATE 0.083% 2.5 MG/3 ML VIAL.NEB INH SCH ×4 (02:25→19:58)
[2019-06-08] MEDS: IPRATROPIUM BROM 0.5 MG/2.5 ML VIAL.NEB (ATROVENT) INH SCH ×4 (02:26→19:58)
[2019-06-08] MEDS: HYDROmorphone 1 MG INJ. 1 MG/ML AMPUL IVP PRN ×5 (02:34→21:20)
[2019-06-08] MEDS: PROMETHAZINE HCL/CODEINE 6.25-10 mg/5 mL UDC PO PRN ×3 (02:35→21:38)
[2019-06-08] MEDS: MEROPENEM 1 GM in NS 100 ML IV SCH ×3 (02:35→17:13)
[2019-06-08] MEDS: BISACODYL 10 MG/SUPPOSITORY RC PRN (02:35)
[2019-06-08 02:46] VITALS: BP_SYST 137
--- NOTE | 2019-06-08 03:00 | NUR ---
Dilaudid Patient requesting to have Dilaudid diluted with 1 ml of saline. Per outside pharmacist, Jonh and roundhouse firer/fireman, okay to give. Patient VSS. Patient tolerated well. Patient also given suppository for constipation, patient has not had bowel movement for eight days. Patient tolerated suppository. No other needs. Call light with the patient. Safety precautions in place.
--- NOTE | 2019-06-08 05:09 | NUR ---
Resting Patient resting in bed. No signs of distress noted. Breathing even and unlabored on 3 L NC. Patient provided with turkey sandwich, joseph crackers, and ice chips. No other needs. Call light with the patient. Safety precautions in place.
[2019-06-08] MEDS: INSULIN REGULAR, HUMAN 100 UNITS/ML, 10 ML VIAL (humuLIN R) SUBCUT PRN ×4 (06:34→21:33)
[2019-06-08] MEDS: DIPHENHYDRAMINE INJ 50 MG/ML VIAL IVP PRN ×4 (06:34→23:21)
[2019-06-08] MEDS: FLUTICASONE 44 mcg/ACTUATION MDI AER.W.ADAP INH SCH ×2 (06:35→17:44)
[2019-06-08] MEDS: methylPREDNISolone SOD SUCC 40 MG/ML VIAL IVP SCH ×2 (06:35→18:13)
--- NOTE | 2019-06-08 06:58 | NUR ---
Closing notes Patient is resting comfortably in bed. Patient linens and gown changed. Patient complained of itchiness. PRN Benadryl given. No signs of allergic reaction noted. PICC line patent and intact, no signs of infiltration noted. All needs met throughout the shift. Call light with the patient. Safety precautions in place. Will endorse care to day shift RN.
[2019-06-08 07:16] LABS: HEMATOCRIT 29.6 % (36-48); HEMOGLOBIN 9.6 g/dL (12.0-16.0); LYMPHOCYTES # (AUTO) 1.4 K/uL (1.0-5.5); LYMPHOCYTES % (AUTO) 13.2 % (20.5-51.5); MEAN CORPUSCULAR HEMOGLOBIN 28 pg (27-31); MEAN CORPUSCULAR HGB CONC 32 % (32-36); MEAN CORPUSCULAR VOLUME 87 fL (79.0-98.0); MONOCYTES # (AUTO) 0.6 K/uL (0.0-1.0); MONOCYTES % (AUTO) 5.8 % (1.7-9.3); NEUTROPHILS # (AUTO) 8.4 K/uL (1.8-7.7); PLATELET COUNT (AUTO) 274 K/uL (130-430); WHITE BLOOD COUNT (AUTO) 10.4 K/uL (4.8-10.8)
[2019-06-08 07:30] LABS: CALCIUM 8.1 mg/dL (8.4-11.0); CHLORIDE 92 mmol/L (98-107); CREATININE 1.16 mg/dL (0.55-1.30); GLUCOSE 166 mg/dL (70-99); POTASSIUM 4.9 mmol/L (3.5-5.1); SODIUM SERUM 128 mmol/L (136-145); UREA NITROGEN, BLOOD 49 mg/dL (8-21)
[2019-06-08 07:31] LABS: ANION GAP < 3 (5-15); GFR AFRICAN AMERICAN 61 mL/min (>90)
[2019-06-08 07:32] VITALS: BP_SYST 181
--- NOTE | 2019-06-08 07:50 | NUR ---
INITIAL NOTE RECEIVED PT IN BED, NO S/S OF DISTRESS OR SOB NOTED, PT HAS NO C/O PAIN AT THIS TIME, PT IN STABLE CONDITION. PT AAOX4, VERBAL. PT HAS PICC LINE ON RIGHT UPPER ARM, BOTH PORTS FLUSH AND HAVE BLOOD RETURN, DRESSING CLEAN AND DRY, NON OCCLUDED. SALINE LOCK. BED AT LOWEST POSITION, CALL LIGHT WITHIN REACH, WILL CONTINUE TO MONITOR PT FOR ANY CHANGES. FALL AND SAFETY PRECAUTIONS IN PLACE. PT ON OXYGEN 3 LITERS VIA NASAL CANNULA, SATURATION OF 99%. PT HAS BILATERAL SCD'S IN PLACE.
[2019-06-08] MEDS: MILK OF MAGNESIA 30 ML UDC PO PRN (08:17)
[2019-06-08] MEDS: FLUTICASONE PROPIONATE 50 mCg/SPRAY 16 GM NS SCH ×2 (08:22→20:55)
[2019-06-08] MEDS: FERROUS SULFATE 300 MG/5 ML UDC PO SCH (08:22)
[2019-06-08] MEDS: DOCUSATE SODIUM 100 MG CAPSULE PO SCH ×2 (08:23→20:52)
[2019-06-08] MEDS: LISINOPRIL 20 MG TABLET PO SCH ×2 (08:23→20:53)
[2019-06-08] MEDS: ISOSORBIDE MONONITRATE 30 MG TAB.ER.24H PO SCH (08:23)
[2019-06-08] MEDS: GABAPENTIN 300 MG CAPSULE PO SCH (08:24)
[2019-06-08] MEDS: ASPIRIN 81 MG TAB.CHEW PO SCH (08:24)
[2019-06-08] MEDS: FLUCONAZOLE 200 MG TABLET (DIFLUCAN) PO SCH (08:24)
[2019-06-08] MEDS: PANTOPRAZOLE SODIUM 40 MG TAB PO SCH (08:24)
[2019-06-08] MEDS: MORPHINE SULFATE 30 MG Immediate Release TABLET PO SCH ×2 (08:25→20:54)
[2019-06-08] MEDS: NITROGLYCERIN 0.4 MG/HR PATCH.TD24 TD SCH (08:26)
[2019-06-08] MEDS: LIDOCAINE TOPICAL OINT 5%, 35 GM TP SCH ×2 (08:27→20:55)
[2019-06-08] MEDS: FUROSEMIDE 40 MG/4 ML VIAL IVP SCH (08:27)
[2019-06-08] MEDS: cycloSPORINE 0.05%, 0.4 ML OPHTHALMIC EMULSION DROPERETTE OP SCH ×2 (08:35→20:55)
[2019-06-08 08:36] VITALS: BP_SYST 181
--- NOTE | 2019-06-08 10:50 | NUR ---
ROUNDS/BM PT SITTING UP IN BED, PT USED BEDSIDE COMMODE AND HAD SMALL BOWEL MOVEMENT, PERINEAL CARE PROVIDED. PT RESTING COMFORTABLY, WILL CONTINUE TO MONITOR PT FOR ANY CHANGES. FALL AND SAFETY PRECAUTIONS IN PLACE.
--- NOTE | 2019-06-08 12:05 | NUR ---
ROUNDS PT IN BED, NO S/S OF DISTRESS OR SOB NOTED, PT HAS NO C/O PAIN AT THIS TIME, PT IN STABLE CONDITION, PT ON HER CELL PHONE, WILL CONTINUE TO MONITOR PT FOR ANY CHANGES.
[2019-06-08 12:47] VITALS: BP_SYST 157
--- NOTE | 2019-06-08 14:44 | NUR ---
MEDICATION REASSESSMENT PT NO LONGER FEELS ITCHY, NO RASH NOTED, WILL CONTINUE TO MONITOR PT FOR ANY CHANGES.
[2019-06-08] MEDS ORDERED: MAGNESIUM CITRATE 300 ML ORAL SOLUTION PO ONE (15:00)
[2019-06-08 16:00] VITALS: BP_SYST 127
--- NOTE | 2019-06-08 16:10 | NUR ---
ROUNDS PT IN BED, NO S/S OF DISTRESS OR SOB NOTED, PT HAS NO C/O PAIN AT THIS TIME, PT IN STABLE CONDITION, PT RESTING COMFORTABLY, WILL CONTINUE TO MONITOR PT FOR ANY CHANGES.
[2019-06-08] MEDS: MONTELUKAST 10 MG TABLET PO SCH (17:12)
--- NOTE | 2019-06-08 18:43 | NUR ---
MEDICATION REASSESSMENT PT NO LONGER FEELS ITCHY, NO RASH NOTED, WILL CONTINUE TO MONITOR PT FOR ANY CHANGES.
--- NOTE | 2019-06-08 18:51 | NUR ---
CLOSING NOTE PT SITTING UP IN A CHAIR, NO S/S OF DISTRESS OR SOB NOTED, PT HAS NO C/O PAIN AT THIS TIME, PT IN STABLE CONDITION. PT AAOX4, VERBAL. PT HAS PICC LINE ON RIGHT UPPER ARM, SALINE LOCK. BED AT LOWEST POSITION, CALL LIGHT WITHIN REACH, WILL ENDORSE CARE OF PT TO INCOMING NURSE. FALL AND SAFETY PRECAUTIONS IN PLACE. PT ON OXYGEN 3 LITERS VIA NASAL CANNULA, SATURATION OF 99%. PT HAS BILATERAL SCD'S IN PLACE. Addendum: 06/08/19 at 1857 by Lyssa Kellogg RN EDUCATED PT ON ALL MEDICATIONS GIVEN THROUGHOUT SHIFT, ITS USE AND ITS SIDE EFFECTS, PT VERBALIZED UNDERSTANDING.
--- NOTE | 2019-06-08 19:17 | NUR ---
initial notes: pt is sittng up in bedside chair, eating dinner, no pain, not distress. comfortable. on o2 via nc. call light in reach, will follow-uip.
[2019-06-08 20:24] VITALS: BP_SYST 176
[2019-06-08] MEDS: CYCLOBENZAPRINE HCL 10 MG TABLET (FLEXERIL) PO SCH (20:53)
--- NOTE | 2019-06-08 22:00 | NUR ---
PT IS BED, NO SIGN OF PAIN, NOT DISTRESS, STABLE. NEEDS ATTENDED. CALL LIGHT IN REACH. SAFETY PRECAUTION ON.
--- NOTE | 2019-06-08 23:50 | NUR ---
PICC LINE DRESSING CHANGE DONE ASEPTICALLY. PT TOLERATE WELL.
[2019-06-09 00:01] VITALS: BP_SYST 152
--- NOTE | 2019-06-09 00:45 | NUR ---
ASSISTED BACK TO BED FROM BEDSIDE COMMODE, TOLERATE WELL. PT START COMPLAIN OF PAIN AND COUGH, EDUCATE ABOUT MEDICATION VERBALIZED UNDERSTANDING. CALL LIGHT IN REACH, SIDE RAILS UP. LOW BED POSITION. SAFETY PRECAUTION IN PLACE.
[2019-06-09] MEDS: PROMETHAZINE HCL/CODEINE 6.25-10 mg/5 mL UDC PO PRN ×3 (01:37→21:30)
[2019-06-09] MEDS: IPRATROPIUM BROM 0.5 MG/2.5 ML VIAL.NEB (ATROVENT) INH SCH ×4 (01:37→20:39)
[2019-06-09] MEDS: ALBUTEROL SULFATE 0.083% 2.5 MG/3 ML VIAL.NEB INH SCH ×4 (01:37→20:39)
[2019-06-09] MEDS: MEROPENEM 1 GM in NS 100 ML IV SCH ×3 (01:38→17:08)
[2019-06-09] MEDS: HYDROmorphone 1 MG INJ. 1 MG/ML AMPUL IVP PRN ×6 (01:55→22:50)
--- NOTE | 2019-06-09 02:00 | NUR ---
AWAKE, ALERT, NO COMPLAIN AT THIS TIME. STABLE, IV ANTIBIOTIC INFUSING. NEEDS ATTENDED. CALL LIGHT IN REACH.
--- NOTE | 2019-06-09 03:53 | NUR ---
SLEEPING, COMFORTABLE, NO SIGN OF PAIN, NO SOB. STABLE. CALL LIGHT IN REACH.
--- NOTE | 2019-06-09 06:15 | NUR ---
PT TRANSFER HERSELF BACK TO BED FORM BEDSIDE COMMODE, COMPLAIN OF PAIN, STABLE. NOT DISTRESS. NEEDS ATTENDED, EDUCATE ABOUT MEDICATION.
[2019-06-09] MEDS: methylPREDNISolone SOD SUCC 40 MG/ML VIAL IVP SCH ×3 (06:35→22:51)
[2019-06-09] MEDS: FLUTICASONE 44 mcg/ACTUATION MDI AER.W.ADAP INH SCH ×2 (06:43→19:00)
[2019-06-09] MEDS: DIPHENHYDRAMINE INJ 50 MG/ML VIAL IVP PRN ×5 (06:44→22:50)
[2019-06-09 07:13] LABS: CALCIUM 8.4 mg/dL (8.4-11.0); CREATININE 1.24 mg/dL (0.55-1.30); POTASSIUM 4.7 mmol/L (3.5-5.1)
--- NOTE | 2019-06-09 07:25 | NUR ---
CLOSING: PT IS AWAKE, ALERT, NO SIGN OF PAIN, NO SOB, ASKING FOR ICE, STABLE. NEEDS ATTENDED THE WHOLE SHIFT, BEDSIDE REPORT GIVEN TO AM RN.
--- NOTE | 2019-06-09 07:40 | NUR ---
A/OX4. NO SIGN OF PAIN, NO SOB AT THIS TIME. POC IS EXPLAINED. CALL LIGHT IS IN PLACE, BED LOCKED AT THE LOWEST POSITION, WILL CONTINUE TO MONITOR.
--- NOTE | 2019-06-09 07:55 | NUR ---
Initial notes: Patient is alert and oriented times 4, she does not present any new complaints. She is currently receiving her breathign treatment, she took her PO and IV meds very well. Her bed is low and locked, 2 side rails are up and call light is within reach. Pita ELLSI
[2019-06-09] MEDS: DOCUSATE SODIUM 100 MG CAPSULE PO SCH ×2 (08:36→21:28)
[2019-06-09] MEDS: ISOSORBIDE MONONITRATE 30 MG TAB.ER.24H PO SCH (08:36)
[2019-06-09] MEDS: ASPIRIN 81 MG TAB.CHEW PO SCH (08:36)
[2019-06-09] MEDS: PANTOPRAZOLE SODIUM 40 MG TAB PO SCH (08:36)
[2019-06-09] MEDS: LISINOPRIL 20 MG TABLET PO SCH ×2 (08:37→21:29)
[2019-06-09] MEDS: FLUCONAZOLE 200 MG TABLET (DIFLUCAN) PO SCH (08:37)
[2019-06-09] MEDS: GABAPENTIN 300 MG CAPSULE PO SCH (08:38)
[2019-06-09] MEDS: cycloSPORINE 0.05%, 0.4 ML OPHTHALMIC EMULSION DROPERETTE OP SCH ×2 (08:39→21:27)
[2019-06-09] MEDS: FLUTICASONE PROPIONATE 50 mCg/SPRAY 16 GM NS SCH ×2 (08:39→21:26)
[2019-06-09] MEDS: FUROSEMIDE 40 MG/4 ML VIAL IVP SCH (08:40)
[2019-06-09] MEDS: VITS A AND D/WHITE PET/LANOLIN 113.4 GM TUBE TP PRN (08:40)
[2019-06-09] MEDS: FERROUS SULFATE 300 MG/5 ML UDC PO SCH (08:41)
[2019-06-09] MEDS: NITROGLYCERIN 0.4 MG/HR PATCH.TD24 TD SCH (08:41)
[2019-06-09] MEDS: LIDOCAINE TOPICAL OINT 5%, 35 GM TP SCH ×2 (08:42→21:30)
[2019-06-09] MEDS: MORPHINE SULFATE 30 MG Immediate Release TABLET PO SCH ×2 (08:59→21:00)
--- NOTE | 2019-06-09 11:15 | NUR ---
Patient present no new complaints, is able to ambulate with assistance to the bedside commode. She is currently talking on the phone with her grandson. Her bed is low and locked, 2 side rails are up and call light is within reach. Pita ELLIS
[2019-06-09 11:33] VITALS: BP_SYST 157
[2019-06-09 12:00] VITALS: BP_SYST 155
--- NOTE | 2019-06-09 12:06 | NUR ---
BLOOD SUGAR 226. INSULIN COVERAGE WILL BE GIVEN PER ORDER.
[2019-06-09] MEDS: INSULIN REGULAR, HUMAN 100 UNITS/ML, 10 ML VIAL (humuLIN R) SUBCUT PRN (12:09)
--- NOTE | 2019-06-09 14:02 | NUR ---
Patient is receiving her breathing treatment at the moment. I helped her ambulate to her bedside commode and is back in bed. She states no new complaints. Her bed is low and locked, 2 side rails are up and call light is within reach. Pita ELLIS
--- NOTE | 2019-06-09 15:05 | NUR ---
Hinson cath was initiated, no complications, patient had return of urine immediately. Patient was placed back in bed with HOB 30 degrees. Bed is low and locked, two side rails are up and call light is within reach. Pita ELLIS
--- NOTE | 2019-06-09 16:24 | NUR ---
Nutrition F/U RD reviewed pt's current EMR record including diet Hx, physician notes, nursing notes, pertinent labs/meds/procedures, care trends, and care activity. Admission Dx: SOB pt also found w/ COPD exacerbation, acute on chronic respiratory failure, DM, Sjgren's per physician notes PMH: COPD, chronic respiratory failure, on home O2, CHF, DM, lupus per physician notes Current Diet Order/Nutrition Support: 2 gm Na x10 days Subjective Info: Pt has been tolerating diet well and eating adequately to meet nutritional needs per EMR. Reported of constipation -- pt may benefit from additional high fiber diet. Current % PO Consistently good since last RD F/U Estimated Energy Expenditure (kcals/day) 7286-4614 kcal/day (MSJ x 1-1.2 CBW for obesity, maintenance) Estimated Protein Required (g/day) 55-69 gm/day (0.8-1 gm/kg Adj IBW for obesity, maintenance) Estimated Fluid Required (l/day) Per physician d/t CHF Problem/Etiology/Signs/Symptoms Malnutrition related to morbid obesity as evidenced by BMI: 50.3 kg/m2 and 250% of IBW. *ongoing Inadequate nutritional intakes related to lack of appetite as evidenced by poor PO intake records. *improved; pt is meeting nutritional needs Expected Outcomes/Goals - Monitor appetite and PO intakes w/ goal of pt meeting at least 50% of estimated nutritional needs, labs trending WNL, normal GI function, and skin integrity/wt maintenance Dietitian Recommendations * Recommend 2 gm Na, high fiber diet Follow Up Low Risk: F/U in 7 days
--- NOTE | 2019-06-09 16:26 | NUR ---
Dietitian Recommendations * Recommend 2 gm Na, high fiber diet LP, RD Please refer to Nutrition F/U for details.
[2019-06-09] MEDS: MONTELUKAST 10 MG TABLET PO SCH (17:07)
--- NOTE | 2019-06-09 17:45 | NUR ---
Patient is sitting in bed, she took her meds with water and an apple sauce, she verbalized feeling better with the gonzalez cath in place. Her sugar checks were fine and she did not need any insulin coverage. Her bed is low and locked, 2 side rails are up and her call light is within reach. Alyson ELLIS.
--- NOTE | 2019-06-09 18:22 | NUR ---
Closing notes: Patient is in bed watching TV and reading a magazine, she verbalizes no new complaints. Her plan is to continue antibiotics and her current treatment. Her bed is low and locked, 2 side rails are up, call light is within reach. Alyson ELLIS
--- NOTE | 2019-06-09 19:42 | NUR ---
OPENING NOTE RECEIVED REPORT FROM DAYSHIFT RN, PATIENT IS RESTING IN BED, A/OX3, EVEN AND UNLABORED BREATHING ON 3L NC, NO SIGNS OF ACUTE DISTRESS, PICC TO RIGHT UPPER ARM INTACT AND SALINE LOCKED, PATENT/BENIGN, PEDERSEN CATHETER DRAINING TO GRAVITY. SAFETY, FALL AND ASPIRATION PRECAUTIONS IN PLACE, PATIENT REFUSED BED ALARM DESPITE EDUCATION, WILL REINFORCE EDUCATION THROUGHOUT SHIFT, PATIENT VERBALIZED SHE WILL USE HER CALL LIGHT FOR ASSISTANCE OUT OF BED, BED LOCKED AND IN LOWEST POSITION, TWO SIDE RAILS UP, CALL LIGHT WITH PATIENT, WILL CONTINUE TO MONITOR.
[2019-06-09 20:00] VITALS: BP_SYST 137
[2019-06-09] MEDS: CYCLOBENZAPRINE HCL 10 MG TABLET (FLEXERIL) PO SCH (21:28)
--- NOTE | 2019-06-09 21:30 | NUR ---
COUGH PATIENT COMPLAINS OF COUGH AND REQUESTS PRN PROMETHAZINE. PRN PROMETHAZINE INDICATED FOR COUGH. EDUCATED PATIENT ON MEDICATION USES AND POTENTIAL SIDE EFFECTS, PATIENT ABLE TO VERBALIZE UNDERSTANDING, ADMINISTERED MEDICATION PER MD ORDER, PATIENT TOLERATED WELL, NO SIGNS OF ACUTE DISTRESS. SAFETY AND FALL PRECAUTIONS IN PLACE, CALL LIGHT WITH PATIENT, WILL CONTINUE TO MONITOR.
--- NOTE | 2019-06-09 21:34 | NUR ---
BLOOD SUGAR PATIENT'S BLOOD SUGAR IS 150. NO INSULIN COVERAGE INDICATED PER INSULIN SLIDING SCALE AT THIS TIME. SAFETY AND FALL PRECAUTIONS IN PLACE, CALL LIGHT WITH PATIENT, WILL CONTINUE TO MONITOR.
--- NOTE | 2019-06-09 22:50 | NUR ---
COUGH AND ITCHING PATIENT COMPLAINS OF PAIN 8/10 TO HER ABDOMEN AND ITCHING. PRN DILAUDID INDICATED FOR SEVERE PAIN AND BENADRYL INDICATED FOR ITCHING. EDUCATED PATIENT ON MEDICATIONS USES AND POTENTIAL SIDE EFFECTS, PATIENT ABLE TO VERBALIZE UNDERSTANDING, ADMINISTERED MEDICATIONS PER MD ORDER, PATIENT TOLERATED WELL. SAFETY AND FALL PRECAUTIONS IN PLACE, CALL LIGHT WITH PATIENT, WILL CONTINUE TO MONITOR.
[2019-06-10] MEDS: ALBUTEROL SULFATE 0.083% 2.5 MG/3 ML VIAL.NEB INH SCH ×3 (01:00→20:12)
[2019-06-10] MEDS: IPRATROPIUM BROM 0.5 MG/2.5 ML VIAL.NEB (ATROVENT) INH SCH ×3 (01:00→20:12)
[2019-06-10] MEDS: MEROPENEM 1 GM in NS 100 ML IV SCH ×3 (01:24→17:59)
[2019-06-10] MEDS: DIPHENHYDRAMINE INJ 50 MG/ML VIAL IVP PRN ×5 (03:22→20:56)
[2019-06-10] MEDS: HYDROmorphone 1 MG INJ. 1 MG/ML AMPUL IVP PRN ×5 (03:25→20:55)
[2019-06-10] MEDS: MILK OF MAGNESIA 30 ML UDC PO PRN (03:44)
--- NOTE | 2019-06-10 03:44 | NUR ---
PRN CONSTIPATION PATIENT COMPLAINS OF CONSTIPATION. PRN MILK OF MAGNESIA INDICATED FOR CONSTIPATION. EDUCATED PATIENT ON MEDICATION USES AND POTENTIAL SIDE EFFECTS, PATIENT ABLE TO VERBALIZE UNDERSTANDING, ADMINISTERED MEDICATION PER MD ORDER, PATIENT TOLERATED WELL. SAFETY AND FALL PRECAUTIONS IN PLACE, CALL LIGHT WITH PATIENT, WILL CONTINUE TO MONITOR.
[2019-06-10] MEDS: FLUTICASONE 44 mcg/ACTUATION MDI AER.W.ADAP INH SCH ×2 (06:48→19:00)
[2019-06-10] MEDS: methylPREDNISolone SOD SUCC 40 MG/ML VIAL IVP SCH ×2 (06:51→17:58)
[2019-06-10] MEDS: ONDANSETRON HCL 4 MG/2 ML VIAL IVP PRN (06:56)
[2019-06-10] MEDS: INSULIN REGULAR, HUMAN 100 UNITS/ML, 10 ML VIAL (humuLIN R) SUBCUT PRN ×3 (06:58→20:45)
--- NOTE | 2019-06-10 07:00 | NUR ---
NAUSEA PATIENT COMPLAINS OF NAUSEA AND HAVING THE URGE TO VOMIT, PRN ZOFRAN INDICATED FOR NAUSEA AND VOMITING. EDUCATED PATIENT ON MEDICATION USES AND POTENTIAL SIDE EFFECTS, PATIENT ABLE TO VERBALIZE UNDERSTANDING, ADMINISTERED MEDICATION PER MD ORDER, PATIENT TOLERATED WELL. SAFETY AND FALL PRECAUTIONS IN PLACE, CALL LIGHT WITH PATIENT, WILL CONTINUE TO MONITOR.
--- NOTE | 2019-06-10 07:08 | NUR ---
CLOSING NOTE PATIENT IS RESTING IN BED, TOLERATING 3L NC, NO SIGNS OF ACUTE DISTRESS, PICC TO RIGHT UPPER ARM INTACT AND SALINE LOCKED, PATENT/BENIGN, PEDERSEN CATHETER DRAINING TO GRAVITY. SAFETY, FALL AND ASPIRATION PRECAUTIONS IN PLACE, PATIENT REFUSED BED ALARM DESPITE EDUCATION THROUGHOUT SHIFT. PATIENT VERBALIZED SHE WILL USE HER CALL LIGHT FOR ASSISTANCE OUT OF BED, BED LOCKED AND IN LOWEST POSITION, TWO SIDE RAILS UP, CALL LIGHT WITH PATIENT, WILL ENDORSE CARE TO DAYSHIFT RN.
[2019-06-10 07:22] LABS: CALCIUM 8.2 mg/dL (8.4-11.0); CREATININE 1.15 mg/dL (0.55-1.30); POTASSIUM 4.9 mmol/L (3.5-5.1)
[2019-06-10] MEDS: LISINOPRIL 20 MG TABLET PO SCH ×2 (09:00→20:42)
[2019-06-10] MEDS: FERROUS SULFATE 300 MG/5 ML UDC PO SCH (09:33)
[2019-06-10] MEDS: PANTOPRAZOLE SODIUM 40 MG TAB PO SCH (09:33)
[2019-06-10] MEDS: GABAPENTIN 300 MG CAPSULE PO SCH (09:33)
[2019-06-10] MEDS: NITROGLYCERIN 0.4 MG/HR PATCH.TD24 TD SCH (09:34)
[2019-06-10] MEDS: ASPIRIN 81 MG TAB.CHEW PO SCH (09:35)
[2019-06-10] MEDS: DOCUSATE SODIUM 100 MG CAPSULE PO SCH ×2 (09:35→20:42)
[2019-06-10] MEDS: ISOSORBIDE MONONITRATE 30 MG TAB.ER.24H PO SCH (09:35)
[2019-06-10] MEDS: MORPHINE SULFATE 30 MG Immediate Release TABLET PO SCH ×2 (09:35→21:00)
[2019-06-10] MEDS: FLUTICASONE PROPIONATE 50 mCg/SPRAY 16 GM NS SCH ×2 (09:35→20:41)
[2019-06-10] MEDS: VITS A AND D/WHITE PET/LANOLIN 113.4 GM TUBE TP PRN (09:36)
[2019-06-10] MEDS: LIDOCAINE TOPICAL OINT 5%, 35 GM TP SCH ×2 (09:36→20:42)
[2019-06-10] MEDS: cycloSPORINE 0.05%, 0.4 ML OPHTHALMIC EMULSION DROPERETTE OP SCH ×2 (09:36→21:00)
[2019-06-10] MEDS: FUROSEMIDE 40 MG/4 ML VIAL IVP SCH (09:37)
--- NOTE | 2019-06-10 09:57 | NUR ---
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
--- NOTE | 2019-06-10 10:00 | NUR ---
PATIENT IS ASSISTED TO BSC WITH ASSISTANCE OF PSYCHOLOGIST DEVELOPMENTAL.
--- NOTE | 2019-06-10 12:00 | NUR ---
BS 229. 4 UNITS OF RI IS GIVEN PER SLIDING SCALE.
[2019-06-10 12:25] VITALS: BP_SYST 152
--- NOTE | 2019-06-10 12:30 | NUR ---
PATIENT'S C/O PAIN AT THE ABDOMEN; 1MG DILAUDID IS GIVEN IVP. WILL REASSESS.
--- NOTE | 2019-06-10 14:44 | NUR ---
PATIENT IS RESTING AT THIS TIME. TOLERATED WITHOUT DISTRESS.
[2019-06-10] MEDS: PROMETHAZINE HCL/CODEINE 6.25-10 mg/5 mL UDC PO PRN (16:18)
--- NOTE | 2019-06-10 16:20 | NUR ---
PATIENT'S C/O ABOMINAL PAIN. 1MG DILAUDID IS GIVEN PER DOCTOR'S ORDER.
--- NOTE | 2019-06-10 16:30 | NUR ---
BS 102. NO COVERAGE NEEDED.
[2019-06-10 16:31] VITALS: BP_SYST 154
[2019-06-10] MEDS: MONTELUKAST 10 MG TABLET PO SCH (17:58)
--- NOTE | 2019-06-10 18:20 | NUR ---
PATIENT IS TOLERATING DINNER WITHOUT DISTRESS.
[2019-06-10 19:00] VITALS: BP_SYST 169
--- NOTE | 2019-06-10 19:15 | NUR ---
change of shift.pt.presents quiescent affect;calm,resting.pt.presents picc line;location rt.bicept.intact patent.pt.presents gonzalez cath intact patent.pt.receiving the administration o2 therapy via nasal cannulae.general status stable.respiratory status stable. slight labored.call light/telephone w/in reach of the pt.
[2019-06-10 20:00] VITALS: BP_SYST 169
--- NOTE | 2019-06-10 20:00 | NUR ---
pt.assessed.v/s assessed;values w/in normal limits.pt had inquired when the pain medication is due;i apprised the pt. that the pain medication is scheduled q-4hrs;prn and will be due if necessary @2030p.i have apprised the pt.that i may provide snacks/beverages w/in the shift. no requests posited@this hour.picc line intact patent;ns-flush infusing.gonzalez cath intact patent urine content present.pt.assessed for cleanliness.pt.repositioned.call light/telephone placed w/in reach of the pt. Addendum: 06/11/19 at 0202 by Stefano Mejía RN o2-sat%=96%.
--- NOTE | 2019-06-10 20:30 | NUR ---
i have assessed the blood glucose value;216mg/dl.i have apprised the pt.of the blood glucose value.
[2019-06-10] MEDS: CYCLOBENZAPRINE HCL 10 MG TABLET (FLEXERIL) PO SCH (20:42)
--- NOTE | 2019-06-10 21:00 | NUR ---
2100p medications administered.i have administer insulin:regular;4-units per the sliding scale parameters.
--- NOTE | 2019-06-10 22:00 | NUR ---
pt.assessed.pt.presents quiescent affect;calm,resting.viewing programming via telephone.picc line intact patent iv fluids infusing. ns-flush.gonzalez cath intact patent urine content present. general status stable.respiratory status stable;slight labored:02-sat%=96%.call light/telephone w/in reach of the pt. pt.assessed for cleanliness.pt.repositioned.
[2019-06-11] VITALS (8 sets, daily range): BP systolic 108–149
--- NOTE | 2019-06-11 | NUR ---
pt.assessed.v/s assessed;values w/in normal limits.i have assisted the pt.to the bsc.i have assisted the pt's return to bed. picc line intact patent t iv fluids ns-flush infusing.gonzalez cath intact patent urine content present.pt.requested snacks.i have provided the snacks.general status stable.respiratory status stable;slight labored;02-sat%=96%.call light/telephone placed w/in reach of the pt.
[2019-06-11] MEDS: MEROPENEM 1 GM in NS 100 ML IV SCH ×3 (01:19→16:49)
[2019-06-11] MEDS: DIPHENHYDRAMINE INJ 50 MG/ML VIAL IVP PRN ×5 (01:22→21:47)
[2019-06-11] MEDS: HYDROmorphone 1 MG INJ. 1 MG/ML AMPUL IVP PRN ×3 (01:22→16:42)
[2019-06-11] MEDS: PROMETHAZINE HCL/CODEINE 6.25-10 mg/5 mL UDC PO PRN ×4 (01:23→14:52)
--- NOTE | 2019-06-11 01:30 | NUR ---
pt.requested medication;pain.i have administered dilaudid:1mg ivp.to re-assess the medication efficacy per pain mgx protocol. in conjunction w the dilaudid administration benadryl administered;50mg ivp.via the picc line.pt requsted medication cough. i have administered phenergan:5ml.pt.had requested constipation medication.i have adminsitered mom:30ml pt.had requested snacks.i have provided the snacks.
[2019-06-11] MEDS: MILK OF MAGNESIA 30 ML UDC PO PRN (01:35)
[2019-06-11] MEDS: ALBUTEROL SULFATE 0.083% 2.5 MG/3 ML VIAL.NEB INH SCH ×4 (01:57→19:35)
[2019-06-11] MEDS: IPRATROPIUM BROM 0.5 MG/2.5 ML VIAL.NEB (ATROVENT) INH SCH ×4 (01:57→19:35)
--- NOTE | 2019-06-11 02:00 | NUR ---
pt.assessed.pt.presents quiescent affct;calm somnolent.picc line intact patent iv fluids infusing.gonzalez cath intact patent urine content present. general status stable.respiratory status stable:o2-sat%=96%.pt repositioned.call light/telephone placed w/in reach of the pt.
--- NOTE | 2019-06-11 04:00 | NUR ---
pt.assessed.pt.presents quiescent affect;calm,somnolent.picc line intact;patent iv fluids;ns-flush infusing.pt.repositioned. general status stable.respiratory status stable;slight labored;;023-sat%=96%.call light/telephone placed w/in reach of the pt.
--- NOTE | 2019-06-11 05:00 | NUR ---
pt.had requested medication;pain.i have administered dilaudid;1mg ivp in conjunction i have administered benadryl;50mg ivp. to re-assess the pain medication efficacy per pain mgx protocol.pt.had requested medication;cough i have administered [id number] po.no additional requests posited@this hour.
[2019-06-11] MEDS: methylPREDNISolone SOD SUCC 40 MG/ML VIAL IVP SCH ×2 (05:19→21:27)
[2019-06-11] MEDS: INSULIN REGULAR, HUMAN 100 UNITS/ML, 10 ML VIAL (humuLIN R) SUBCUT PRN ×2 (05:55→12:16)
--- NOTE | 2019-06-11 06:42 | NUR ---
pt.assessed.i have assessed the blood glucose;value;170mg/dl.i have administered insulin;regular;2-units. general status stable.respiratory status stable slight labored;o2-sat%=96%.i have weighed the pt.2/t chf/lasix administration.call light/telephone placed w/in reach of the pt.
[2019-06-11] MEDS: FLUTICASONE 44 mcg/ACTUATION MDI AER.W.ADAP INH SCH ×2 (07:00→21:36)
[2019-06-11 08:16] LABS: BASOPHILS # (AUTO) 0.1 K/uL (0.0-0.2); BASOPHILS % (AUTO) 0.5 % (0.0-2.0); EOSINOPHILS % (AUTO) 0.2 % (0.0-4.0); HEMATOCRIT 31.6 % (36-48); HEMOGLOBIN 10.3 g/dL (12.0-16.0); LYMPHOCYTES # (AUTO) 1.1 K/uL (1.0-5.5); LYMPHOCYTES % (AUTO) 10.5 % (20.5-51.5); MEAN CORPUSCULAR HEMOGLOBIN 29 pg (27-31); MEAN CORPUSCULAR HGB CONC 33 % (32-36); MEAN CORPUSCULAR VOLUME 87 fL (79.0-98.0); MONOCYTES # (AUTO) 0.5 K/uL (0.0-1.0); MONOCYTES % (AUTO) 4.9 % (1.7-9.3); NEUTROPHILS # (AUTO) 8.9 K/uL (1.8-7.7); NEUTROPHILS % (AUTO) 83.9 % (40.0-70.0); PLATELET COUNT (AUTO) 277 K/uL (130-430); RED BLOOD CELL COUNT(AUTO) 3.62 MIL/uL (4.2-6.2); WHITE BLOOD COUNT (AUTO) 10.6 K/uL (4.8-10.8)
[2019-06-11 08:19] LABS: CALCIUM 8.4 mg/dL (8.4-11.0); CREATININE 1.07 mg/dL (0.55-1.30)
[2019-06-11] MEDS: HYDROmorphone 2 MG TAB PO PRN ×2 (09:22→21:19)
[2019-06-11] MEDS: GABAPENTIN 300 MG CAPSULE PO SCH (09:23)
[2019-06-11] MEDS: PANTOPRAZOLE SODIUM 40 MG TAB PO SCH (09:23)
[2019-06-11] MEDS: ISOSORBIDE MONONITRATE 30 MG TAB.ER.24H PO SCH (09:24)
[2019-06-11] MEDS: DOCUSATE SODIUM 100 MG CAPSULE PO SCH ×2 (09:24→21:29)
[2019-06-11] MEDS: LISINOPRIL 20 MG TABLET PO SCH ×2 (09:24→21:00)
[2019-06-11] MEDS: ASPIRIN 81 MG TAB.CHEW PO SCH (09:25)
[2019-06-11] MEDS: FUROSEMIDE 40 MG/4 ML VIAL IVP SCH (09:25)
[2019-06-11] MEDS: FERROUS SULFATE 300 MG/5 ML UDC PO SCH (09:26)
[2019-06-11] MEDS: NITROGLYCERIN 0.4 MG/HR PATCH.TD24 TD SCH (09:27)
[2019-06-11] MEDS: LIDOCAINE TOPICAL OINT 5%, 35 GM TP SCH ×2 (09:33→21:00)
[2019-06-11] MEDS: FLUTICASONE PROPIONATE 50 mCg/SPRAY 16 GM NS SCH ×2 (09:33→21:28)
[2019-06-11] MEDS ORDERED: MINERAL OIL 30 ML UDC PO ONE (09:45)
[2019-06-11] MEDS: cycloSPORINE 0.05%, 0.4 ML OPHTHALMIC EMULSION DROPERETTE OP SCH ×2 (09:53→21:28)
[2019-06-11] MEDS ORDERED: POLYETHYLENE GLYCOL 3350, 17 GM/ POWD.PACK PO ONE (10:00)
--- NOTE | 2019-06-11 10:23 | NUR ---
spent about 45 minutes with patient for her am and prn meds.
--- NOTE | 2019-06-11 11:40 | NUR ---
CASE MANAGEMENT: Important phone numbers: Primary Handle Machine Operator tel# [phone].x 245: cm ailyn, x 267: cm Rosalia, x [phone] : cm Priscilla. Transportation : may use [facility] with auth. >> I requested with Rosalia , the contracted snf, HH and ambulance list. She will be faxing to me today.
[2019-06-11] MEDS: MINERAL OIL 30 ML UDC PO SCH ×2 (14:00→21:32)
--- NOTE | 2019-06-11 14:00 | NUR ---
gonzalez discontinued as ordered, pt tolerated well. pt assisted to bs commode.
--- NOTE | 2019-06-11 14:45 | NUR ---
pt assisted by student nurses with personal care, pt tolerated well. pt reported to have bm.
--- NOTE | 2019-06-11 15:51 | NUR ---
pt seen eating, pt offered po pain med, pt refused,
[2019-06-11] MEDS: MONTELUKAST 10 MG TABLET PO SCH (17:51)
--- NOTE | 2019-06-11 18:08 | NUR ---
pt in bed, eating dinner. will cont to monitor.
--- NOTE | 2019-06-11 19:26 | NUR ---
CLOSING, PT HAS BEEN STABLE THIS SHIFT, GIVEN PAIN MEDS NEEDED. ENDORSED TO NIGHT NURSE.
--- NOTE | 2019-06-11 19:30 | NUR ---
Opening Note Received patient awake, resting in bed, nonlabored breathing on 3L NC. No s/sx of distress. PIIC to GALE, and sign is posted above head board. Bed is locked in lowest position and call light w/in reach. Updated board.
--- NOTE | 2019-06-11 19:45 | NUR ---
Breathing tx Rt providing breathing tx.
--- NOTE | 2019-06-11 21:25 | NUR ---
Bedside commode Patient assisted to bed from [facility] [place], she voided and had dark pellet shaped bowel movement.
[2019-06-11] MEDS: CYCLOBENZAPRINE HCL 10 MG TABLET (FLEXERIL) PO SCH (21:30)
--- NOTE | 2019-06-11 21:35 | NUR ---
Medications Due medications given.
[2019-06-12] MEDS: MILK OF MAGNESIA 30 ML UDC PO PRN (00:05)
[2019-06-12] MEDS: PROMETHAZINE HCL/CODEINE 6.25-10 mg/5 mL UDC PO PRN ×3 (00:43→15:59)
[2019-06-12] MEDS: HYDROmorphone 1 MG INJ. 1 MG/ML AMPUL IVP PRN ×3 (00:44→20:56)
[2019-06-12] MEDS: ALBUTEROL SULFATE 0.083% 2.5 MG/3 ML VIAL.NEB INH SCH ×4 (01:31→19:52)
[2019-06-12] MEDS: IPRATROPIUM BROM 0.5 MG/2.5 ML VIAL.NEB (ATROVENT) INH SCH ×4 (01:31→19:52)
[2019-06-12] MEDS: MEROPENEM 1 GM in NS 100 ML IV SCH ×3 (02:00→17:44)
[2019-06-12] MEDS: ONDANSETRON HCL 4 MG/2 ML VIAL IVP PRN (02:01)
[2019-06-12] MEDS: DIPHENHYDRAMINE INJ 50 MG/ML VIAL IVP PRN ×5 (02:01→19:40)
--- NOTE | 2019-06-12 02:19 | NUR ---
Antibiotic / Zofran, Benadryl Due antibiotic administered and patient tolerating. Patient reporting nausea and administered Zofran as ordered, provided emesis bag. Patient requesting Benadryl and it was administered as ordered. Patient requested ice chips and a pitcher of ice chips were provided. She has no further needs, will continue to monitor.
[2019-06-12] MEDS: MINERAL OIL 30 ML UDC PO SCH ×4 (06:00→20:54)
[2019-06-12] MEDS: VITS A AND D/WHITE PET/LANOLIN 113.4 GM TUBE TP PRN (06:55)
[2019-06-12] MEDS: methylPREDNISolone SOD SUCC 40 MG/ML VIAL IVP SCH ×2 (06:56→19:40)
[2019-06-12] MEDS: FLUTICASONE 44 mcg/ACTUATION MDI AER.W.ADAP INH SCH ×2 (07:00→19:00)
--- NOTE | 2019-06-12 07:15 | NUR ---
OPENING NOTES PT AWAKE, ALERT, AND ORIENTED. NO ACUTE DISTRESS NOTED. NONLABORED BREATHING NOTED, RECEIVING OXYGEN AT 3LPM VIA NASAL CANNULA, TOLERATING WELL. PICC LINE INTACT AND PATENT ON RIGHT UPPER ARM, NO SIGNS OF INFILTRATION NOTED. PT CLEAN AND DRY. ALL NEEDS MET. BED LOCKED AND IN LOWEST POSITION. BED ALARM ON. CALL LIGHT IN REACH. FALL AND ASPIRATION PRECAUTIONS IN PLACE. CONTINUE TO MONITOR.
[2019-06-12 08:00] VITALS: BP_SYST 138
[2019-06-12] MEDS: FLUTICASONE PROPIONATE 50 mCg/SPRAY 16 GM NS SCH ×2 (08:37→20:53)
[2019-06-12] MEDS: POLYETHYLENE GLYCOL 3350, 17 GM/ POWD.PACK PO SCH ×2 (08:37→09:00)
[2019-06-12] MEDS: PANTOPRAZOLE SODIUM 40 MG TAB PO SCH (08:38)
[2019-06-12] MEDS: ASPIRIN 81 MG TAB.CHEW PO SCH (08:38)
[2019-06-12] MEDS: FERROUS SULFATE 300 MG/5 ML UDC PO SCH (08:38)
[2019-06-12] MEDS: DOCUSATE SODIUM 100 MG CAPSULE PO SCH ×3 (08:38→20:54)
[2019-06-12] MEDS: GABAPENTIN 300 MG CAPSULE PO SCH (08:38)
--- NOTE | 2019-06-12 08:38 | NUR ---
ROUTINE MEDS ROUTINE MEDS ADMINISTERED ORDERED PER MD, EDUCATION GIVEN, TOLERATED WELL. NO ACUTE DISTRESS NOTED. ALL NEEDS MET. CALL LIGHT IN REACH. CONTINUE TO MONITOR.
[2019-06-12] MEDS: LISINOPRIL 20 MG TABLET PO SCH ×2 (08:42→21:00)
[2019-06-12] MEDS: cycloSPORINE 0.05%, 0.4 ML OPHTHALMIC EMULSION DROPERETTE OP SCH ×2 (08:43→20:53)
[2019-06-12] MEDS: NITROGLYCERIN 0.4 MG/HR PATCH.TD24 TD SCH (08:43)
[2019-06-12] MEDS: ISOSORBIDE MONONITRATE 30 MG TAB.ER.24H PO SCH (08:43)
[2019-06-12] MEDS: FUROSEMIDE 40 MG/4 ML VIAL IVP SCH (08:44)
--- NOTE | 2019-06-12 09:06 | NUR ---
SEEN BY DR. GRAHAM AT BEDSIDE AND PRN PAIN MEDS ADMINISTERED ORDERED PER MD, EDUCATION GIVEN, TOLERATED WELL. NO ACUTE DISTRESS NOTED. ALL NEEDS MET. CALL LIGHT IN REACH. CONTINUE TO MONITOR.
--- NOTE | 2019-06-12 11:34 | NUR ---
ACCUCHECK ACCUCHECK DONE, EDUCATION GIVEN, TOLERATED WELL. RESULT 226 MG/DL, INSULIN COVERAGE ADMINISTERED PER SLIDING SCALE, EDUCATION GIVEN, TOLERATED WELL. NO ACUTE DISTRESS NOTED. ALL NEEDS MET. CALL LIGHT IN REACH. CONTINUE TO MONITOR.
[2019-06-12] MEDS: LIDOCAINE TOPICAL OINT 5%, 35 GM TP SCH ×2 (12:12→20:53)
--- NOTE | 2019-06-12 12:12 | NUR ---
LIDOCAINE MED ADMINISTERED LIDOCAINE ORDERED PER MD, GIVEN AT THIS TIME DUE TO WAITING FOR PHARMACY TO RE-FILL. EDUCATION GIVEN, TOLERATED WELL. NO ACUTE DISTRESS NOTED. ALL NEEDS MET. CALL LIGHT IN REACH. CONTINUE TO MONITOR.
[2019-06-12] MEDS: INSULIN REGULAR, HUMAN 100 UNITS/ML, 10 ML VIAL (humuLIN R) SUBCUT PRN (12:14)
[2019-06-12 12:20] VITALS: BP_SYST 131
--- NOTE | 2019-06-12 14:00 | NUR ---
ROUNDS PT AWAKE, ALERT, AND ORIENTED. NO ACUTE DISTRESS NOTED. ALL NEEDS MET. CALL LIGHT IN REACH. CONTINUE TO MONITOR.
--- NOTE | 2019-06-12 15:00 | NUR ---
CHARGE NURSE LU SPOKE TO PT AT BEDSIDE REGARDING PLAN OF CARE. ALL NEEDS MET. PT VERBALIZED UNDERSTANDING, CALL LIGHT IN REACH. CONTINUE TO MONITOR.
--- NOTE | 2019-06-12 15:31 | NUR ---
PRN MEDS ADMINISTERED PRN MEDS ORDERED PER MD, EDUCATION GIVEN, TOLERATED WELL. NO ACUTE DISTRESS NOTED. ALL NEEDS MET. CALL LIGHT IN REACH. CONTINUE TO MONITOR.
[2019-06-12 16:00] VITALS: BP_SYST 93
[2019-06-12] MEDS: MONTELUKAST 10 MG TABLET PO SCH (17:34)
--- NOTE | 2019-06-12 17:46 | NUR ---
ROUTINE MEDS ROUTINE MEDS ADMINISTERED ORDERED PER MD, EDUCATION GIVEN, TOLERATED WELL. NO ACUTE DISTRESS NOTED. ALL NEEDS MET. ACCUCHECK DONE, RESULT 100MG/DL. EDUCATION GIVEN, TOLERATED WELL. NO INSULIN COVERAGE NEEDED. CONTINUE TO MONITOR.
--- NOTE | 2019-06-12 19:00 | NUR ---
CLOSING NOTES PT AWAKE, ALERT, AND ORIENTED. WATCHING TELEVISION IN BED. NONLABORED BREATHING NOTED, RECEIVING OXYGEN AT 3LPM VIA NASAL CANNULA, TOLERATING WELL. NO ACUTE DISTRESS NOTED. PICC LINE INTACT AND PATENT ON RIGHT UPPER ARM, NO SIGNS OF INFILTRATION NOTED. PT CLEAN AND DRY. BED LOCKED AND IN LOWEST POSITION. BED ALARM ON. ALL NEEDS MET. CALL LIGHT IN REACH. FALL AND ASPIRATION PRECAUTIONS IN PLACE. WILL ENDORSE TO RHONDA MOYER AND TO ADMINISTER 1900 MEDICATIONS ORDERED PER MD.
--- NOTE | 2019-06-12 19:30 | NUR ---
opening notes received report pt is resting in bed. no signs of distress noted. breathing even and unlabored on 3L NC. Patient requesting benedryl and solumedrol at the same time. will medicate. PICC line patent and intact, no signs of infiltration noted. assisted patient to BSC to void. Complete linen change done at the time. Patient back to bed, no other needs at this time. call light within reach. bed in lowest position and locked. side rails up X2.
[2019-06-12 20:00] VITALS: BP_SYST 127
[2019-06-12] MEDS: CYCLOBENZAPRINE HCL 10 MG TABLET (FLEXERIL) PO SCH (20:53)
--- NOTE | 2019-06-12 21:00 | NUR ---
Medications Scheduled and PRN medications given. Educated patient on action and side effects of medications, patient verbalized an understanding and tolerated well. No other needs at this time. Call light within reach. Bed in the lowest position with wheels locked. Side rails up X2.
[2019-06-13] VITALS: BP_SYST 144
[2019-06-13] MEDS: DIPHENHYDRAMINE INJ 50 MG/ML VIAL IVP PRN ×4 (00:24→17:17)
[2019-06-13] MEDS: PROMETHAZINE HCL/CODEINE 6.25-10 mg/5 mL UDC PO PRN (00:24)
--- NOTE | 2019-06-13 00:30 | NUR ---
Benadryl and Cough Medicine Administered medications. Educated on the action and side effects. Patient verbalized an understanding of the side effects. Assisted patient to the BSC. Patient urinated. Assisted patient back to bed, tolerated well. Brought patient ice chips. All needs met at this time. Bed is in the lowest position with wheels locked. Call light is within reach. Side rails up X2.
[2019-06-13] MEDS: IPRATROPIUM BROM 0.5 MG/2.5 ML VIAL.NEB (ATROVENT) INH SCH ×3 (01:05→13:06)
[2019-06-13] MEDS: ALBUTEROL SULFATE 0.083% 2.5 MG/3 ML VIAL.NEB INH SCH ×3 (01:05→13:06)
--- NOTE | 2019-06-13 02:00 | NUR ---
Note Patient called for assistance to the BSC. Assisted patient to the BSC. Patient did not urinate. While on the BSC patient coughed up sputum into a cup and wanted RN to take a look at it because "there is blood in it," upon examination RN did not see any evidence of blood in the sputum. Sputum was dark yellow in color. Assisted patient back into bed. Gave patient more ice chips as requested, no other needs at this time. Patient resting comfortably in bed. Bed is in lowest position with wheels locked. Call light within reach. Side rails up X2.
--- NOTE | 2019-06-13 04:18 | NUR ---
RN Rounds Patient was sleeping. No signs of distress. Breathing even and unlabored. No needs at this time. Call light within reach. Bed in lowest position and wheels locked. Side rails up X2.
[2019-06-13] MEDS: MINERAL OIL 30 ML UDC PO SCH ×2 (06:00→14:00)
[2019-06-13] MEDS: methylPREDNISolone SOD SUCC 40 MG/ML VIAL IVP SCH (06:32)
[2019-06-13] MEDS: FLUTICASONE 44 mcg/ACTUATION MDI AER.W.ADAP INH SCH (06:33)
--- NOTE | 2019-06-13 06:56 | NUR ---
Closing Notes Patient called to use BSC. assisted patient to BSC, patient urinated. Assisted back to bed, patient resting comfortably. RN completed accu check 131. No insulin required. Patient asked to be given benadryl with the solumedrol at this time. Administered the medications and provided education on action and side effects. patient verbalized an understanding. Patient also asked for pain medication, RN notified patient that her PRN pain medication has been discontinued this morning. Patient became upset at MD. RN will page MD about medication order. RN apologized and asked if she had any other needs at this time. Patient told RN to "stop talking to me, I am getting upset." Call light within reach. Bed in lowest position with wheels locked. Will endorse care to AM RN.
--- NOTE | 2019-06-13 08:00 | NUR ---
ASSUMPTION OF CARE: RECEIVED PT A/A/OX4, DX:ACTIVITY INTOLERANCE, R/T SOB, VSS, BREATH SOUNDS ARE CLEAR, BREATHING UNLABORED, SATURATING, 93% ON 3L VIA NC, IV SITE INTACT, PATENT, NO REDNESS OR SWELLING, NO S/S OF DISTRESS, IV PICC LINE INTACT, PATENT, NO REDNESS OR SWELLING, ORIENTED TO UNIT CALL LIGHT PLACED WITHIN REACH, WILL CONT' TO MONITOR AND ASSESS.
--- NOTE | 2019-06-13 09:00 | NUR ---
CRIMINALIST TECHNICIAN: MORNING MEDS GIVEN, PER ORDERED BY Stacy, TOLERATED WELL, WILL CONT' TO MONITOR AND ASSESS.
[2019-06-13] MEDS: LIDOCAINE TOPICAL OINT 5%, 35 GM TP SCH (09:25)
[2019-06-13] MEDS: ASPIRIN 81 MG TAB.CHEW PO SCH (09:26)
[2019-06-13] MEDS: GABAPENTIN 300 MG CAPSULE PO SCH (09:26)
[2019-06-13] MEDS: ISOSORBIDE MONONITRATE 30 MG TAB.ER.24H PO SCH (09:26)
[2019-06-13] MEDS: DOCUSATE SODIUM 100 MG CAPSULE PO SCH (09:26)
[2019-06-13] MEDS: FERROUS SULFATE 300 MG/5 ML UDC PO SCH (09:27)
[2019-06-13] MEDS: PANTOPRAZOLE SODIUM 40 MG TAB PO SCH (09:27)
[2019-06-13] MEDS: POLYETHYLENE GLYCOL 3350, 17 GM/ POWD.PACK PO SCH (09:29)
[2019-06-13] MEDS: LISINOPRIL 20 MG TABLET PO SCH (09:29)
[2019-06-13] MEDS: NITROGLYCERIN 0.4 MG/HR PATCH.TD24 TD SCH (09:30)
[2019-06-13] MEDS: cycloSPORINE 0.05%, 0.4 ML OPHTHALMIC EMULSION DROPERETTE OP SCH (09:31)
[2019-06-13] MEDS: FUROSEMIDE 40 MG/4 ML VIAL IVP SCH (09:31)
[2019-06-13] MEDS: FLUTICASONE PROPIONATE 50 mCg/SPRAY 16 GM NS SCH (09:31)
--- NOTE | 2019-06-13 11:46 | NUR ---
PHYSICAL THERAPY CO-SIGN The Physical Therapy Progress Notes documented by Piercing Specialist have been reviewed. Reviewed/Co-Signed by: Jaspreet Ryan PT Documentation Done by: SAMIR LU PTA Addendum: 06/13/19 at 1152 by Jaspreet Ryan PT Amended: Links added.
--- NOTE | 2019-06-13 11:47 | NUR ---
PHYSICAL THERAPY CO-SIGN The Physical Therapy Progress Notes documented by Vpk Teacher have been reviewed. Reviewed/Co-Signed by: Jaspreet Ryan, PT Documentation Done by: ASTON BROWN TAXI DRIVER Addendum: 06/13/19 at 1152 by Jaspreet Ryan PT Amended: Links added.
--- NOTE | 2019-06-13 11:49 | NUR ---
PHYSICAL THERAPY CO-SIGN The Physical Therapy Progress Notes documented by Delimer have been reviewed. Reviewed/Co-Signed by: Jaspreet Ryan PT Documentation Done by: SAMIR LU PTA Addendum: 06/13/19 at 1152 by Jaspreet Ryan PT Amended: Links added.
--- NOTE | 2019-06-13 12:00 | NUR ---
GLUCOSE MONITORING: BLOOD SUGAR TOZZT=879, 4 UNIT REGULAR INSULIN GIVEN, SQ TOLERATED WELL, WILL CONT' TO MONITOR AND ASSESS.
[2019-06-13] MEDS: INSULIN REGULAR, HUMAN 100 UNITS/ML, 10 ML VIAL (humuLIN R) SUBCUT PRN (12:10)
--- NOTE | 2019-06-13 12:18 | NUR ---
CHF PROTOCOL / PCP APPOINTMENT PATIENT HAS A DISCHARGE ORDER TODAY, PATIENT STATED THAT SHE WILL CALL HER OWN PRIMARY CARE PHYSICIAN TO MAKE AN APPOINTMENT TO SEE HER PCP IN 1 WEEK. SHE DOESN'T WANT THE NURSES TO CALL HER PCP TO ARRANGE FOR A FOLLOW UP APPOINTMENT.
[2019-06-13 12:48] VITALS: BP_SYST 112
--- NOTE | 2019-06-13 13:20 | NUR ---
Discharge Planning: MARQUITA faxed pt referral to [facility] (f [phone] p [phone]) [facility]LE[facility] to follow up. Addendum: 06/13/19 at 1526 by Gianna CHAIDEZ MARQUITA followed up with Geeta at [facility] p [phone]) she stated the patient can be accepted pending CM gets an authorization from insurance. MARQUITA made CM aware. Addendum: 06/13/19 at 1653 by Gianna Estrada DP MARQUITA called insurance [facility] (f [phone] p [phone] opt#[phone]) spoke to Noreen she stated for Urgent auth fax order marked urgent, this could take up to 72hrs. MARQUITA made CM aware.
--- NOTE | 2019-06-13 13:54 | NUR ---
DC Planning: Called [facility] , s/w Arabella # [phone] requesting a CM to call me back anastasia. I am requesting the auth for HH f/u and for ambulance transfer. Arabella will forward the message to CM dept for someone to call me back. Addendum: 06/13/19 at 1530 by Tish Tirado RN >> Called x2 to [facility] # [phone], the group practice pediatrician was choppy with interferences, unable to understand the conversation. I called back the off hour # [phone] again, able to speak with Keisha and made her aware of poor group practice pediatrician of the 562# and that I was unable to reach the foster care case manager earlier . Ana found the [phone] had the group practice pediatrician problem as well . Keisha stated she would contact a CM to call be back. She advised to call the off hour number again if no one call me in 30 minutes. -- CM to f/u. Addendum: 06/13/19 at 1532 by Tish Tirado RN Late entry: [id number] : faxed dc order for home with HH and dc summary to Lyssa at [facility]. fax# [phone]. Addendum: 06/14/19 at 0843 by Tish Tirado RN Late entry: 06/13/19 at 1615: informed pt about the home health set up which may not get the approval today. The pt stated she already arrange her own transportation with the special program with insurance she has. She wants to go home regardless of having Her ride will be pick here up in one hour around [phone]. Informed her that [facility] accepting to visit with her when got authorization from her insurance. I will continue working on getting the HH auth and will update her accordingly.
[2019-06-13 16:35] VITALS: BP_SYST 108
[2019-06-13 16:52] VITALS: BP_SYST 108; BP_SYST 118
--- NOTE | 2019-06-13 17:00 | NUR ---
DISCHARGE: PT DISCHARGED TO HOME, INSTRUCTIONS GIVEN, BELONGING ACCOUNTED FOR AND RETURNED TO PT, IV PICC LINE DISCONTINUED AND PRESSURE DRESSING APPLIED, TOLERATED WELL, CONDITION IS STABLE, ACCOMPANIED BY STAFF, TRANSPORTED TO [facility] VIA WHEELCHAIR.
--- NOTE | 2019-06-14 11:02 | NUR ---
Home Health: I called back Stan at [facility] this am # [phone]. She stated that she is off today and advised me to call Kely at ext [phone]. I phoned Kely asking for HH authorization for [facility]. Kely confirmed per record , the fax request sent to Ros[facility] yesterday was received as well. Again, Kely stated she does not manage [facility] then I was transferred to [facility] voice mail . I lVM for her to call me back anastasia. Addendum: 06/14/19 at 1150 by Tish Tirado RN >> S/W [facility] , confirmed to approve the auth for [facility]. She will arrange/call from her office to the HH. I gave her [facility] contract person/Geeta and phone number and vice a versa. I spoke with Geeta at [facility] , gave her Cali Aquino's contact number to get the auth as well. >> Damaris at [facility] # [phone] >> Geeta at [facility] # [phone] >> pt's home # [phone] . I phoned/informed the pt that [facility] will be calling her to make visiting appointment. The HH contact center specialist and number provided to her as well.
== END 2019-06-13 17:20 | disposition home health service (06) | DRG 189 ==
LOC: SED 16:08 → STU 21:33 → SMU 06-04 14:25
PROVIDERS: ADMIT Internal Medicine Hospice and Palliative Medicine; ATTEND Internal Medicine Hospice and Palliative Medicine
PROC: 02HV33Z Insertion of Infusion Device into Superior Vena Cava, Percutaneous Approach (ICD-10-PCS; principal; 2019-05-29)
PROC: B548ZZA Ultrasonography of Superior Vena Cava, Guidance (ICD-10-PCS; 2019-05-29)
DX: J96.20 Acute and chronic respiratory failure, unspecified whether with hypoxia or hypercapnia (principal); J44.1 Chronic obstructive pulmonary disease with (acute) exacerbation; Z68.43 Body mass index [BMI] 50.0-59.9, adult; R04.2 Hemoptysis; F11.20 Opioid dependence, uncomplicated; I50.9 Heart failure, unspecified; I11.0 Hypertensive heart disease with heart failure; M35.00 Sjogren syndrome, unspecified; K59.09 Other constipation; M79.7 Fibromyalgia; E11.9 Type 2 diabetes mellitus without complications; R07.89 Other chest pain; E66.01 Morbid (severe) obesity due to excess calories; G89.4 Chronic pain syndrome; Z86.711 Personal history of pulmonary embolism; Z87.891 Personal history of nicotine dependence; Z99.81 Dependence on supplemental oxygen; Z88.8 Allergy status to other drugs, medicaments and biological substances; Z88.1 Allergy status to other antibiotic agents; Z79.899 Other long term (current) drug therapy
CPT/HCPCS: 36415; 36600; 71045; 71250-TC; 80048; 80053; 82803-TC; 82962; 83880; 84484; 85025; 85379; 85610-TC; 85730-TC; 93005; 93306; 93971; 94640; 94760; 96372; 96374; 96375; 97110-GP; 97112-GP; 97530-GP; 99285; C1751; G0378; J1030; J1170; J1200; J1650; J1815; J1940; J2185; J2270; J2274; J2405; J2930; J7613; Q0163